=== PATIENT | male | born 1960 | race Caucasian/White ===

== ENCOUNTER → 2022-10-13 14:38 | Outpatient (CLI) | payer SELFPAY ==
[2022-10-13 13:31] LABS: Alanine Aminotransferase 26 U/L (12-78); Albumin Level 4.4 g/dl (3.5-5.0); Albumin/Globulin Ratio 1.5 (1.1-1.8); Alkaline Phosphatase 93 U/L (38-126); Anion Gap 15.2 mEq/L (5-15); Aspartate Amino Transferase 33 U/L (17-59); Bilirubin,Total 0.5 mg/dl (0.2-1.3); Blood Urea Nitrogen 15 mg/dl (9-20); Calcium 9.4 mg/dl (8.4-10.2); Carbon Dioxide 23 mmol/L (22.0-30.0); Chloride 107 mmol/L (98-107); Chol/HDL Ratio 4.5 (1-3.5); Cholesterol 167 mg/dl (140-200); Estimated Glomerular Filt Rate 137 ml/min (>60); GFR (African American) 166 ML/MIN (>60); Glucose 97 mg/dl (74-100); HDL Cholesterol 37 mg/dl (40-60); Potassium 4.2 mmoL/L (3.5-5.1); Sodium 141 mmol/L (136-145); Total Protein,Serum 7.4 g/dl (6.3-8.2); Triglycerides 313 mg/dl (30-150); VLDL Cholesterol 63 mg/dL (0-40)
[2022-10-13 13:42] LABS: Direct LDL Cholesterol 74.34 mg/dL (100-129)
[2022-10-13 13:49] LABS: Hemoglobin A1C 7.3 % (4.0-6.0)
[2022-10-13 14:02] LABS: Prostate Specific Ag Screen 0.6 ng/ml (0.0-4.0); Thyroid Stimulating Hormone 0.92 uIU/mL (0.465-4.68)
[2022-10-13 14:07] LABS: Amphetamine/Metha Screen,Urine Negative ng/ml (<1000); Barbiturates Screen,Urine Negative ng/ml (<200)
[2022-10-13 14:08] LABS: Basophils # 0.1 K/mm3 (0-0.2); Basophils % 0.6 % (0.1-2.0); Benzodiazepines Screen,Urine Negative ng/ml (<200); Cannabinoid Screen,Urine Negative ng/ml (<50); Eosinophils # 0.3 K/mm3 (0.0-0.4); Eosinophils % 3.6 % (0.1-12.0); Hematocrit 41.3 % (42.0-52.0); Hemoglobin 13.5 g/dL (14.1-18.0); Lymphocytes # 3.9 K/mm3 (0.7-4.5); Lymphocytes % 41.5 % (10-50); Mean Corpuscular HGB Conc 32.6 g/dL (31.8-35.4); Mean Corpuscular Hemoglobin 30.7 pg (27.0-31.2); Mean Corpuscular Volume 94.3 fl (80-94); Monocytes # 0.7 K/mm3 (0.1-1.0); Monocytes % 7.8 % (1.7-9.3); Neutrophils # 4.4 K/mm3 (1.8-7.8); Neutrophils % 46.6 % (37.0-80.0); Platelet Count 376 K/mm3 (142-424); Red Blood Count 4.38 M/mm3 (4.60-6.20); Red Cell Distribution Width 14.4 % (11.5-17.5); White Blood Count 9.5 K/mm3 (4.8-10.8)
[2022-10-13 14:09] LABS: Cocaine Screen,Urine Negative ng/ml (<300)
[2022-10-13 14:12] LABS: Methadone Screen,Urine Negative ng/ml (<300); Opiate Screen,Urine Negative ng/ml (<300)
[2022-10-13 14:13] LABS: Phencyclidine Screen,Urine Negative ng/ml (<25)
== END ==
LOC: LAB.DROPOF 14:40
PROVIDERS: PCP Emergency Medicine; Visit Provider Emergency Medicine
DX: E11.9 Type 2 diabetes mellitus without complications (principal); Z76.89 Persons encountering health services in other specified circumstances; Z79.899 Other long term (current) drug therapy; Z12.5 Encounter for screening for malignant neoplasm of prostate
CPT/HCPCS: 80053; 80061; 80305; 83036; 84443; 85025; G0103

== ENCOUNTER 2022-11-22 09:42 | Emergency (ER) | payer SELFPAY ==
[2022-11-22 09:43] VITALS: BP 134/73; PULSE 83; RESP 18; TEMP 36.6; O2SAT 99; BMI 23.6
--- NOTE | 2022-11-22 10:07 | EXP.UTC ---
Discharge Plan Disposition Patient Disposition: Home, Self-Care Condition: Good Prescriptions Prescriptions: New cephalexin 500 mg capsule 500 mg PO QID Qty: 40 0RF mupirocin 2 % ointment 1 applic topical TID 7 Days Qty: 15 0RF triamcinolone acetonide 0.1 % cream 1 applic topical BID PRN (Reason: itching) Qty: 30 0RF No Action gabapentin 300 mg capsule 300 mg PO QID Qty: 120 1RF Rx Instructions: OK to fill today per MD hydrocodone-acetaminophen 10-325 mg tablet 1 tab PO QID Qty: 120 0RF ibuprofen 800 mg tablet 800 mg PO Q8H Qty: 60 1RF quetiapine 100 mg tablet 100 mg PO HS Qty: 30 2RF metformin 500 mg tablet 500 mg PO BID Qty: 60 2RF duloxetine 60 mg capsule,delayed release(DR/EC) 60 mg PO DAILY Qty: 30 2RF lisinopril 20 mg tablet 20 mg PO DAILY Qty: 30 2RF Referrals Follow up/Referrals: Juwan Cartagena MD [Primary Care Provider] - See instructions Activity Restrictions/Add. Instructions Additional Instructions/Restrictions: Keep the wounds clean and dry. Watch the wounds for signs of infection, such as redness, swelling, drainage, fever. etc. Follow up with your regular doctor. Use the topical ointments as directed. The mupirocin is to be used regularly for the next 7 day. The triamcinolone is to be used as needed if you have an area that is itching. GO TO THE ER FOR ANY WORSENING SYMPTOMS OR CONCERNS. Clinical Impressions Clinical Impression: Impetigo, Diabetes Instructions Patient Instructions: Michael DI for Impetigo Discharge ED Provider: Oral Tello [facility] General Stated complaint: both feet bug bites Mode of Arrival: Ambulatory Source of Information: Patient Limitations: No Limitations Time Seen by Provider: 11/22/22 10:07 Description of Symptoms (Recalled from Triage Doc. by RN): Patient reports bumps on feet and legs for awhile now. HEENT Symptoms (Recalled from RN notes): No Resp Symptoms (Recalled from RN notes): No Skin Symptoms (Recalled from RN notes): Yes MS Symptoms (Recalled from RN notes): No Functional Status (Recalled from RN notes): wnl History of Present Illness Provider Complaint: He states that for the past 3 weeks he has had multiple scabbed areas on both his ankles and lower legs. He denies any injury. He states that his ankles itch and when he scratches them it causes sores. He is a diabetic. Related Data Previous Rx's Medication Instructions Recorded duloxetine 60 mg capsule,delayed 60 mg PO DAILY #30 caps 10/13/22 release ibuprofen 800 mg tablet 800 mg PO Q8H #60 tabs 10/13/22 lisinopril 20 mg tablet 20 mg PO DAILY #30 tabs 10/13/22 metformin 500 mg tablet 500 mg PO BID #60 tabs 10/13/22 quetiapine 100 mg tablet 100 mg PO HS #30 tabs 10/13/22 gabapentin 300 mg capsule 300 mg PO QID #120 caps 11/10/22 hydrocodone 10 mg-acetaminophen 1 tab PO QID #120 tabs 11/10/22 325 mg tablet cephalexin 500 mg capsule 500 mg PO QID #40 caps 11/22/22 mupirocin 2 % topical ointment 1 applic topical TID 7 days #15 11/22/22 grams triamcinolone acetonide 0.1 % 1 applic topical BID PRN itching 11/22/22 topical cream #30 grams Allergies Allergy/AdvReac Type Severity Reaction Status Date / Time No Known Allergies Allergy Verified 11/10/22 11:29 Worker's Comp Is this a Worker's Comp case?: No [facility] Disclaimer: The information contained in this section may have been updated after the patient was seen, as this information can be updated by other users. Medical History Diabetes Hypertension Tendon injury Surgical History H/O surgical fusion joint Social History Smoking Status: Current every day smoker tobacco type: cigarettes alcohol intake: never substance use type: denies use current occupational status: retired Travel
[2022-11-22 10:34] VITALS: BP 134/73; PULSE 83; RESP 18; TEMP 36.6; O2SAT 99
== END 2022-11-22 10:35 | disposition home or self-care (01) ==
PROVIDERS: Emergency Provider Nurse Practitioner Family; PCP Emergency Medicine
DX: L01.00 Impetigo, unspecified (principal); E11.9 Type 2 diabetes mellitus without complications; F17.210 Nicotine dependence, cigarettes, uncomplicated; I10 Essential (primary) hypertension; Z79.84 Long term (current) use of oral hypoglycemic drugs
CPT/HCPCS: 99204; 99212; G0463

== ENCOUNTER → 2023-03-04 15:48 | Outpatient (CLI) | payer SELFPAY ==
[2023-03-04 14:58] LABS: Microalbumin < 6.000 mg/L (0-16.7)
[2023-03-04 14:59] LABS: Amphetamine/Metha Screen,Urine Negative ng/ml (<1000); Barbiturates Screen,Urine Negative ng/ml (<200)
[2023-03-04 15:00] LABS: Benzodiazepines Screen,Urine Negative ng/ml (<200)
[2023-03-04 15:01] LABS: Cannabinoid Screen,Urine Negative ng/ml (<50); Cocaine Screen,Urine Negative ng/ml (<300)
[2023-03-04 15:02] LABS: Methadone Screen,Urine Negative ng/ml (<300)
[2023-03-04 15:03] LABS: Opiate Screen,Urine Positive ng/ml (<300); Phencyclidine Screen,Urine Negative ng/ml (<25)
[2023-03-04 15:16] LABS: Creatinine,Urine Random 16 mg/dL (Not Estab.)
== END ==
LOC: LAB.DROPOF 15:49
PROVIDERS: PCP Emergency Medicine; Visit Provider Emergency Medicine
DX: Z79.899 Other long term (current) drug therapy (principal); E11.9 Type 2 diabetes mellitus without complications; Z79.84 Long term (current) use of oral hypoglycemic drugs
CPT/HCPCS: 80305; 82043; 82570

== ENCOUNTER → 2023-04-29 23:09 | Outpatient (CLI) | payer SELFPAY ==
[2023-04-29 20:41] LABS: Amphetamine/Metha Screen,Urine Negative ng/ml (<1000)
[2023-04-29 20:42] LABS: Barbiturates Screen,Urine Negative ng/ml (<200)
[2023-04-29 20:43] LABS: Benzodiazepines Screen,Urine Negative ng/ml (<200)
[2023-04-29 20:44] LABS: Cannabinoid Screen,Urine Negative ng/ml (<50)
[2023-04-29 20:46] LABS: Cocaine Screen,Urine Negative ng/ml (<300); Opiate Screen,Urine Positive ng/ml (<300)
[2023-04-29 20:47] LABS: Methadone Screen,Urine Negative ng/ml (<300)
[2023-04-29 20:48] LABS: Phencyclidine Screen,Urine Negative ng/ml (<25)
== END ==
LOC: LAB.DROPOF 23:09
PROVIDERS: PCP Internal Medicine; Visit Provider Internal Medicine
DX: Z79.899 Other long term (current) drug therapy (principal)
CPT/HCPCS: 80305

== ENCOUNTER 2023-05-07 10:47 | Emergency (ER) | payer SELFPAY ==
[2023-05-07] VITALS (9 sets, daily range): BP systolic 128–152; BP diastolic 78–90; PULSE 74–94; RESP 20; TEMP 36.8; O2SAT 96–100; BMI 24.3
--- NOTE | 2023-05-07 11:36 | CT_ITS ---
FINAL REPORT TECHNIQUE: Axial images were obtained of the thoracic spine by computed tomography. Coronal and sagittal reconstruction process performed. This study was performed with techniques to keep radiation doses as low as reasonably achievable (ALARA). Individualized dose reduction techniques using automated exposure control or adjustment of mA and/or kV according to the patient's size were employed. CLINICAL HISTORY: TTP low thoracic spine, shooting pain/weakness BLE FINDINGS: Thoracic vertebrae show normal height. Disc spaces are well-preserved. There is no malalignment. The facets are properly aligned. There is mild dependent edema in the lung bases. IMPRESSION: No fracture. Reviewed, Interpreted and Dictated by Frank Dunbar MD Transcribed by Rosy Nettles Authenticated and . [facility]
--- NOTE | 2023-05-07 11:36 | CT_ITS ---
FINAL REPORT TECHNIQUE: Axial images were obtained of the lumbar spine by computed tomography. Coronal and sagittal reconstruction process performed. This study was performed with techniques to keep radiation doses as low as reasonably achievable (ALARA). Individualized dose reduction techniques using automated exposure control or adjustment of mA and/or kV according to the patient''s size were employed. CLINICAL HISTORY: TTP and shooting pain/ weakness BLE FINDINGS: Lumbar vertebrae show normal height. There is marked disc space narrowing at L3-4 and L4-5. There is moderate loss of height at L1-2. There is no malalignment. The facets are properly aligned. L1-2: Left paracentral disc extrusion extends inferiorly from the disc space. There is moderate compromise of the left lateral recess and posterior to the L2 vertebra. L2-3: No significant disc bulge or protrusion. L3-4: Moderate diffuse disc bulge and endplate hypertrophy are present. There is mild spinal and moderate bilateral neural foraminal narrowing. L4-5: Moderate diffuse disc bulge and endplate hypertrophy are present. There is [id number] right and moderate to high-grade left neural foraminal narrowing. L5-S1: Mild diffuse disc bulge is present with mild bilateral neural foraminal narrowing. IMPRESSION: Left paracentral disc extrusion at L1-2 extends inferiorly from the disc space in the results in moderate compromise of the left lateral recess. MRI could provide complementary imaging information. Diffuse disc bulges at L3-4 and L4-5 with significant neural foraminal compromise, most evident on the left at L4-5. Reviewed, Interpreted and Dictated by Frank Dunbar MD Transcribed by Rosy Nettles Authenticated and [facility]
--- NOTE | 2023-05-07 11:39 | ED_ITS ---
Discharge Plan Disposition Patient Disposition: Home, Self-Care Condition: Fair Prescriptions Prescriptions: No Action metformin 500 mg tablet 500 mg PO BID Qty: 60 2RF mupirocin 2 % ointment 1 applic topical TID gabapentin 300 mg capsule 600 mg PO TID 30 Days Qty: 180 1RF lisinopril 20 mg tablet 20 mg PO DAILY Qty: 30 2RF duloxetine 60 mg capsule,delayed release(DR/EC) 60 mg PO DAILY Qty: 90 0RF hydrocodone-acetaminophen 10-325 mg tablet 1 tab PO QID Qty: 120 0RF quetiapine 100 mg tablet 100 mg PO HS Qty: 30 2RF Referrals Follow up/Referrals: Antonio Madera DO [Staff Physician] - See instructions (Multiple disc bulges, needs referral for MRI for further evaluation) Steffen Mathis DO [Primary Care Provider] - See instructions Activity Restrictions/Add. Instructions Additional Instructions/Restrictions: You were evaluated in the ER today for concerns of back pain. You do have findings of degenerative changes in the spine including disc bulges at L1-L2, L3-L4, and L4-L5. These are consistent with your symptoms. You do not have findings of cauda equina. You do require further evaluation. I have placed a referral to orthopedics for outpatient follow-up. Call them for an appointment. Make an appointment with your primary care physician for reevaluation. Return to the ER with new, worsening, and otherwise concerning symptoms including but not limited to lack of feeling in your buttock/groin, urinary or stool incontinence, inability to use the restroom, or paralysis Clinical Impressions Clinical Impression: Lumbar back pain Discharge ED Provider: Jayjay Johnson Adult HPI General Chief complaint: Weakness Stated complaint: back pain, right leg numbness Time Seen by Provider: 05/07/23 11:25 Mode of Arrival: Ambulatory Source of Information: Patient Limitations: No Limitations Description of Symptoms (Recalled from ER Triage Doc. by RN): pt to ed c/o bilateral leg weakness, numbness/tingling. pt states he was dx with fused discs in his back. pt reports multiples falls a week related to his leg weakness. History of Present Illness HPI narrative: This 63-year-old male with a history of cervical spinal fusion and chronic back pain presents to the ER with concerns of fall secondary to leg weakness, shooting pains in the legs, numbness and tingling. Patient and family state he has just had pain medications thrown at him and has been told he could not get MRI because of his previous cervical spine fusion, however patient states he has had MRIs since his C-spine fusion. There were significant insurance issues delaying care and now patient is insured and they are here trying to expedite the process for workup. Patient states he is out of his hydrocodone 10 mg and gabapentin 300 mg that he normally takes. Patient denies any bowel or bladder incontinence or difficulty using the restroom. Related Data Home Medications Medication Instructions Recorded Confirmed mupirocin 2 % topical ointment 1 applic topical TID 01/07/23 04/29/23 Previous Rx's Medication Instructions Recorded metformin 500 mg tablet 500 mg PO BID #60 tabs 10/13/22 lisinopril 20 mg tablet 20 mg PO DAILY #30 tabs 02/23/23 gabapentin 300 mg capsule 600 mg PO TID 30 days #180 caps 04/29/23 duloxetine 60 mg capsule,delayed 60 mg PO DAILY #90 caps 05/05/23 release hydrocodone 10 mg-acetaminophen 1 tab PO QID #120 tabs 05/05/23 325 mg tablet quetiapine 100 mg tablet 100 mg PO HS #30 tabs 05/05/23 Allergies Allergy/AdvReac Type Severity Reaction Status Date / Time No Known Allergies Allergy Verified 04/29/23 09:28 [facility] Disclaimer: The information contained in this section may have been updated after the patient was seen, as this information can be updated by other users. Medical History Diabetes Hypertension Tendon injury Surgical History H/O surgical fusion joint Social History Smoking Status: Never smoker alcohol intake: never substance use type: denies use current occupational status: retired Travel in the last 8 weeks: None ROS Obtained: Yes All systems reviewed & no additional complaints except as documented Constitutional Constitutional: Denies chills, Denies fever(s), Denies headache(s) and Denies weakness Eyes Eyes: Denies change in vision ENT Ears, Nose, Mouth, and Throat: Denies dizziness, Denies headache(s), Denies nasal congestion and Denies sore throat Cardiovascular Cardiovascular: Denies chest pain, Denies dyspnea and Denies leg edema Respiratory Respiratory: Denies cough and Denies dyspnea Gastrointestinal Gastrointestingal: Denies constipation, diarrhea, nausea or vomiting Genitourinary Male Genitourinary: Denies difficulty urinating Musculoskeletal Musculoskeletal: Denies arthralgias, Reports back pain, Denies myalgias, Reports numbness and Reports tingling Comments: lower extremity weakness Integumentary/Breasts Skin/Breast: Denies change in pigmentation Neurologic Neurologic: Denies dizziness, Denies headache(s), Reports numbness, Reports tingling and Denies weakness Physical Exam General General appearance: alert and in no apparent distress Head Head exam: atraumatic and normocephalic Eye Eye exam: Present PERRL and EOMI ENT ENT exam: Present mucous membranes moist Neck Neck exam: Present normal inspection and full ROM Chest Chest inspection: Present symmetric chest wall rise Respiratory Respiratory exam: Absent respiratory distress or stridor Cardiovascular Cardiovascular exam: Present regular rate and normal rhythm Abdominal Exam Abdominal exam: Present soft; Absent distention or tenderness Extremities Exam Extremities exam: Present full ROM Back Exam Back exam: Present tenderness (Midline tenderness to palpation of the lower thoracic/upper lumbar spine without deformity or step-off), straight leg raise (R) and straight leg raise (L) Neurological Exam Neurological exam: Present alert, oriented X3 and motor sensory deficit (Decreased strength in the right lower extremity compared to the left, patient states he has decreased sensation right compared to the left.) Psychiatric Psychiatric exam: Present normal affect and normal mood Skin Skin exam: Present warm and dry Medical Decision Making Boy Inquiry Pt receiving controlled substance: No Vital Signs: 05/07/23 11:18 05/07/23 11:00 05/07/23 11:30 Temperature 98.2 F Temperature Source Oral Pulse Rate 94 H 91 H Pulse Rate [Left Radial] 94 H Respiratory Rate 20 Blood Pressure 149/84 H 137/90 Blood Pressure [Right Arm] 152/90 H Blood Pressure Mean 112 116 Blood Pressure Mean [Right Arm] 110 02 Sat by Pulse Oximetry 98 100 98 Oxygen Delivery Method Room Air Room Air Room Air 05/07/23 12:00 05/07/23 12:30 05/07/23 13:00 Temperature Temperature Source Pulse Rate 74 85 81 Pulse Rate [Left Radial] Respiratory Rate 20 20 20 Blood Pressure 150/87 H 128/82 136/79 Blood Pressure [Right Arm] Blood Pressure Mean 111 97 89 Blood Pressure Mean [Right Arm] 02 Sat by Pulse Oximetry 96 98 97 Oxygen Delivery Method 05/07/23 13:30 05/07/23 14:00 Temperature Temperature Source Pulse Rate 83 78 Pulse Rate [Left Radial] Respiratory Rate 20 Blood Pressure 139/89 134/80 Blood Pressure [Right Arm] Blood Pressure Mean 105 102 Blood Pressure Mean [Right Arm] 02 Sat by Pulse Oximetry 97 98 Oxygen Delivery Method Room Air Orders (Tests/Meds): ED MEDICATIONS Discontinued Medications Generic Name Dose Route Start Last Admin Trade Name Freq PRN Reason Stop Dose Admin Hydrocodone Bitart/Acetaminophen 1 tab 05/07/23 11:37 05/07/23 12:09 Hydrocodone 10mg/Apap 325mg Tab PO 05/07/23 11:38 1 tab ONCE ONE Administration Gabapentin 300 mg 05/07/23 11:36 05/07/23 12:11 Gabapentin 300mg Capsule PO 05/07/23 11:37 300 mg ONCE ONE Administration Lidocaine 1 each 05/07/23 11:36 05/07/23 12:09 Lidocaine 5% Transdermal Patch TP 05/07/23 11:37 1 each ONCE ONE Administration Methocarbamol 500 mg 05/07/23 11:37 05/07/23 12:11 Methocarbamol 500mg Tablet PO 05/07/23 11:38 500 mg ONCE ONE Administration ORDERS Category Date Time Status CT lumbar spine wo con Stat Cat Scan 05/07/23 11:[address] thoracic spine wo con Stat Cat Scan 05/07/23 11:36 Completed Medical Decision Narrative: In summary, this 63year old male presents to the emergency department today with back pain, bilateral lower extremity pain, weakness with ambulation. On initial evaluation patient is hemodynamically stable, afebrile, he does have decreased strength in his right lower extremity compared to his left, positive straight leg raise bilaterally, no saddle anesthesia, no bowel or bladder incontinence. No difficulty using the restroom. Differential diagnosis includes but is not limited to spinal fracture or malalignment, degenerative changes, radiculopathy, muscle spasm, I considered cauda equina though I have lower suspicion for this given patient does not have saddle anesthesia, bowel or bladder incontinence, or difficulties using the restroom. Based on these concerns, I ordered CT imaging of the thoracic and lumbar spine, patient's home pain medication plus methocarbamol and lidocaine patch, postvoid residual bladder scan. Patient received oral hydrocodone, Robaxin, gabapentin, lidocaine patch for treatment. No labs are necessary at this time. Postvoid residual bladder scan demonstrated [address] imaging personally interpreted demonstrate degenerative changes with multiple disc bulges. Radiology read is in agreement and specifically recommends neuroforaminal compromise which is consistent with the patient's symptoms of radiculopathy. Given the reassuring postvoid bladder scan and patient frequently ambulating in the ER as he is anxious to leave, I am comfortable with the patient discharging. He does not have other findings of cauda equina and is appropriate for discharge. His symptoms are moderately controlled at this time since receiving medications on my reassessment, I placed referral to Dr. Madera with orthopedics for reevaluation. Patient was given instructions on symptomatic management, follow up instructions, and strict return precautions for the emergency department including instructions about returning with any incontinence, loss of bowel or bladder function, or paralysis. Patient and family at bedside indicated understanding and was discharged in stable condition. Critical Care Critical Care Time Critical Care Time: No
--- NOTE | 2023-05-07 12:02 | PC.NURSE ---
pt ambulatory to restroom without complications
[2023-05-07] MEDS: LIDOCAINE 5% TRANSDERMAL PATCH 1 EACH TP (12:09)
[2023-05-07] MEDS: HYDROCODONE 10MG/APAP 325MG TAB 1 TAB PO (12:09)
[2023-05-07] MEDS: METHOCARBAMOL 500MG TABLET 500 MG PO (12:11)
[2023-05-07] MEDS: GABAPENTIN 300MG CAPSULE 300 MG PO (12:11)
--- NOTE | 2023-05-07 12:21 | PC.NURSE ---
PVR less than 3 mL
== END 2023-05-07 14:47 | disposition home or self-care (01) ==
PROVIDERS: Emergency Provider Emergency Medicine; PCP Internal Medicine
DX: M54.50 Low back pain, unspecified (principal); R53.1 Weakness; R20.0 Anesthesia of skin; R20.2 Paresthesia of skin; E11.9 Type 2 diabetes mellitus without complications; I10 Essential (primary) hypertension
CPT/HCPCS: 72128; 72131; 99285

== ENCOUNTER 2023-05-26 11:59 | Outpatient (CLI) | payer SELFPAY ==
[2023-05-26 14:47] LABS: Amphetamine/Metha Screen,Urine Negative ng/ml (<1000); Barbiturates Screen,Urine Negative ng/ml (<200)
[2023-05-26 14:48] LABS: Benzodiazepines Screen,Urine Negative ng/ml (<200)
[2023-05-26 14:49] LABS: Cannabinoid Screen,Urine Negative ng/ml (<50); Cocaine Screen,Urine Negative ng/ml (<300)
[2023-05-26 14:51] LABS: Methadone Screen,Urine Negative ng/ml (<300)
[2023-05-26 14:52] LABS: Opiate Screen,Urine Positive ng/ml (<300)
[2023-05-26 14:53] LABS: Phencyclidine Screen,Urine Negative ng/ml (<25)
== END 2023-05-26 23:59 ==
LOC: LAB.DROPOF 11:59
PROVIDERS: PCP Internal Medicine; Visit Provider Internal Medicine
DX: Z79.899 Other long term (current) drug therapy (principal)
CPT/HCPCS: 80307

== ENCOUNTER 2023-06-28 09:24 | Emergency (ER) | payer SELFPAY ==
[2023-06-28 09:26] VITALS: BP 146/63; PULSE 108; RESP 14; TEMP 36.6; O2SAT 95; BMI 26.6
[2023-06-28 09:30] VITALS: BP 146/83; PULSE 107; O2SAT 96
--- NOTE | 2023-06-28 09:41 | CT_ITS ---
PROCEDURE INFORMATION: Exam: CT Lumbar Spine Without Contrast Exam date and time: 06/28/2023 9:52 AM Age: 63 years old Clinical indication: Injury or trauma; Fall; Blunt trauma (contusions or hematomas); Additional info: Fall x 2 days, acute on chronic low back pain mid TECHNIQUE: Imaging protocol: Computed tomography of the lumbar spine without contrast. Radiation optimization: All CT scans at this facility use at least one of these dose optimization techniques: automated exposure control; mA and/or kV adjustment per patient size (includes targeted exams where dose is matched to clinical indication); or iterative reconstruction. COMPARISON: CT LUMBAR SPINE WO CON 05/07/2023 11:51 AM FINDINGS: Bones/joints: No acute fracture. Normal alignment. Severe disc space narrowing at L3-L4 and L4-L5 with endplate changes and vacuum disc phenomenon. No significant disc bulge or herniation. No severe spinal canal stenosis. No significant neural foraminal narrowing. Soft tissues: Unremarkable. IMPRESSION: No acute findings.
--- NOTE | 2023-06-28 09:44 | HMH.EDGENADL ---
Discharge Plan Disposition Patient Disposition: Home, Self-Care Prescriptions Prescriptions: No Action metformin 500 mg tablet 500 mg PO BID Qty: 60 2RF mupirocin 2 % ointment 1 applic topical TID gabapentin 300 mg capsule 600 mg PO TID 30 Days Qty: 180 0RF hydrocodone-acetaminophen 10-325 mg tablet 1 tab PO QID 30 Days Qty: 120 0RF duloxetine 60 mg capsule,delayed release(DR/EC) 60 mg PO DAILY Qty: 90 0RF quetiapine 100 mg tablet 100 mg PO HS Qty: 30 2RF lisinopril 20 mg tablet See Rx Instructions .ROUTE .COMPLEX Qty: 90 0RF Dose Instruction: Take 1 tablet by mouth once daily Rx Instructions: Take 1 tablet by mouth once daily Referrals Follow up/Referrals: Eb Draper MD [Staff Physician] - See instructions Steffen Mathis DO [Primary Care Provider] - See instructions Activity Restrictions/Add. Instructions Additional Instructions/Restrictions: At this time is felt you are safe to be discharged home. If new or worsening symptoms please do not hesitate to return the emergency department, particularly using the bathroom on yourself when you do not need to. You are in a very difficult situation, it is important that you are compliant with medications as they are prescribed to you. Please call and schedule an appointment with Dr. Mathis this week as soon as you are able to discuss your options. In my opinion physical therapy will be worthwhile given that you are unable to get an MRI anytime soon. Dr. Draper is our pain management physician at [facility] and may have alternative therapies to offer, I feel will be worthwhile for you to call and make an appointment as soon as you are able at a minimum for their opinion. Clinical Impressions Clinical Impression: Back pain Discharge ED Provider: Mitch Pyle General Adult HPI General Chief complaint: PAIN Stated complaint: [id number], back pain Time Seen by Provider: 06/28/23 09:30 Mode of Arrival: Ambulatory Source of Information: Patient Limitations: No Limitations Description of Symptoms (Recalled from ER Triage Doc. by RN): pt presents to ED with c/o lower back pain. pt reports pain ongoing for several years. pt is established with dr mathis for primary care. pts sister in law at bedside who states, he ate all of his pain pills in the first two weeks of the month, and now has none. pt reports this is true, but no change in pain from baseline History of Present Illness HPI narrative: Patient is a 63-year-old male with past medical history of chronic back pain who presents emergency department for evaluation of back pain. Pain is similar in location to his baseline, across his lumbar spine, however is more severe than normal. Patient takes gabapentin and [place] for his pain control at baseline. Over the last 2 weeks he has taken his entire monthly allotment of [place], last use this morning. He attributes this to not counting his intake of his controlled substances. He also has intermittent frequent falls, most recently falling forwards up the stairs. No reported head trauma or other acute complaints at this time, no incontinence. He is accompanied by his [id number] at bedside. Related Data Home Medications Medication Instructions Recorded Confirmed mupirocin 2 % topical ointment 1 applic topical TID 01/07/23 06/22/23 Previous Rx's Medication Instructions Recorded metformin 500 mg tablet 500 mg PO BID #60 tabs 10/13/22 duloxetine 60 mg capsule,delayed 60 mg PO DAILY #90 caps 05/05/23 release quetiapine 100 mg tablet 100 mg PO HS #30 tabs 05/05/23 lisinopril 20 mg tablet See Rx Instructions .Route 06/15/23 .COMPLEX #90 tabs gabapentin 300 mg capsule 600 mg PO TID 30 days #180 caps 06/22/23 hydrocodone 10 mg-acetaminophen 1 tab PO QID 30 days #120 tabs 06/22/23 325 mg tablet Allergies Allergy/AdvReac Type Severity Reaction Status Date / Time No Known Allergies Allergy Verified 06/22/23 09:44 [facility] Disclaimer: The information contained in this section may have been updated after the patient was seen, as this information can be updated by other users. Medical History Diabetes Hypertension Tendon injury Surgical History H/O surgical fusion joint Social History Smoking Status: Current every day smoker tobacco type: cigarettes alcohol intake: never substance use type: denies use current occupational status: retired Travel in the last 8 weeks: None ROS Obtained: Yes Systems reviewed as appropriate & no additional complaints except as documented Physical Exam General General appearance: alert and other (Appearing in pain in bed) Head Head exam: atraumatic and normocephalic Eye Eye exam: Present PERRL ENT ENT exam: Present mucous membranes moist Neck Neck exam: Present normal inspection Chest Chest inspection: Present normal inspection and symmetric chest wall rise Respiratory Respiratory exam: Absent respiratory distress Cardiovascular Cardiovascular exam: Present regular rate and normal rhythm Abdominal Exam Abdominal exam: Present soft; Absent tenderness Extremities Exam Extremities exam: Present normal inspection and other (5 out of 5 strength bilateral lower extremities) Back Exam Back exam: Present other (Lumbar midline tenderness) Neurological Exam Neurological exam: Present alert Psychiatric Psychiatric exam: Present normal affect Skin Skin exam: Present warm and dry Medical Decision Making Boy Inquiry Pt receiving controlled substance: No Vital Signs: 06/28/23 09:26 06/28/23 09:30 06/28/23 10:00 Temperature 97.8 F Temperature Source Oral Pulse Rate 107 H 99 H Pulse Rate [Left Radial] 108 H Respiratory Rate 14 Blood Pressure 146/83 H 144/96 H Blood Pressure [Right Arm] 146/63 H Blood Pressure Mean 107 Blood Pressure Mean [Right Arm] 90 02 Sat by Pulse Oximetry 95 96 94 L Oxygen Delivery Method Room Air Room Air Orders (Tests/Meds): ED MEDICATIONS Discontinued Medications Generic Name Dose Route Start Last Admin Trade Name Ruben PRN Reason Stop Dose Admin Acetaminophen 1,000 mg 06/28/23 09:41 06/28/23 09:47 Acetaminophen 1,000mg/100ml Vial IV 06/28/23 09:42 Not Given ONCE ONE Acetaminophen 1,000 mg 06/28/23 09:48 06/28/23 10:06 Acetaminophen 500mg Tab PO 06/28/23 09:49 1,000 mg ONCE ONE Administration Ketorolac Tromethamine 60 mg 06/28/23 09:49 06/28/23 10:05 Ketorolac 60mg/2ml Vial IM 06/28/23 09:50 60 mg ONCE ONE Administration Lidocaine 1 each 06/28/23 09:41 06/28/23 10:04 Lidocaine 5% Transdermal Patch TP 06/28/23 09:42 1 each ONCE ONE Administration Methocarbamol 1,000 mg 06/28/23 09:42 02/18/24 10:05 Methocarbamol 500mg Tablet PO 06/28/23 09:43 1,000 mg ONCE ONE Administration Prednisone 40 mg 06/28/23 09:41 06/28/23 10:05 Prednisone 20mg Tab PO 06/28/23 09:42 40 mg ONCE ONE Administration ORDERS Category Date Time Status CT lumbar spine wo con Stat Cat Scan 06/28/23 09:41 Completed Medical Decision Narrative: In summary patient is a 63-year-old male with past medical history described above who presents to the emergency department for evaluation of acute on chronic back pain. Patient is hemodynamically stable nontoxic-appearing upon arrival, appearing in pain, afebrile. Differential diagnosis includes vertebral compression fracture, chronic back pain, among others. Given history of falls with midline tenderness CT imaging is indicated. Extensive discussion was had at bedside with patient and family as to the position he is in, the importance of medication compliance with controlled substances, that there will be no discharge controlled substances today, the need for possible physical therapy evaluation prior to physical therapy given that patient is unable to afford an MRI in the foreseeable future. Patient verbalized understanding of this. Patient requested something to help him sleep which is not indicated at this time acutely or on an outpatient basis from the emergency room. Multimodal pain control will be attempted with Tylenol, ketorolac, lidocaine patch, methocarbamol. Although steroids are arguably of little utility will be attempted with single dose of prednisone. Patient may benefit from pain management referral on an outpatient basis and will be discharged with such. CT imaging informally interpreted by me, no significant 2 or 3 column fracture, formal read shows no acute findings. Upon repeat evaluation patient had persistent pain, was ambulatory at bedside. Patient is appropriate for discharge at this time we will follow-up with Dr. Mathis early next week for coordination of care. Critical Care Critical Care Time Critical Care Time: No
[2023-06-28 10:00] VITALS: BP 144/96; PULSE 99; O2SAT 94
[2023-06-28] MEDS: LIDOCAINE 5% TRANSDERMAL PATCH 1 EACH TP (10:04)
[2023-06-28] MEDS: KETOROLAC 60MG/2ML VIAL 60 MG IM (10:05)
[2023-06-28] MEDS: predniSONE 20MG TAB 40 MG PO (10:05)
[2023-06-28] MEDS: METHOCARBAMOL 500MG TABLET 1000 MG PO (10:05)
[2023-06-28] MEDS: ACETAMINOPHEN 500MG TAB 1000 MG PO (10:06)
[2023-06-28 10:51] VITALS: BP 144/76; PULSE 86; RESP 15; TEMP 36.7
== END 2023-06-28 10:52 | disposition home or self-care (01) ==
PROVIDERS: Emergency Provider Emergency Medicine; PCP Internal Medicine
DX: M54.50 Low back pain, unspecified (principal); E11.9 Type 2 diabetes mellitus without complications; I10 Essential (primary) hypertension; F17.210 Nicotine dependence, cigarettes, uncomplicated; Z79.84 Long term (current) use of oral hypoglycemic drugs
CPT/HCPCS: 72131; 96372; 96374; 99284

== ENCOUNTER 2023-08-18 12:34 | Outpatient (CLI) | payer SELFPAY ==
[2023-08-18 12:39] LABS: Basophils # 0.1 K/mm3 (0-0.2); Basophils % 0.9 % (0.1-2.0); Eosinophils # 0.4 K/mm3 (0.0-0.4); Eosinophils % 2.8 % (0.1-12.0); Hematocrit 42.3 % (42.0-52.0); Hemoglobin 13.6 g/dL (14.1-18.0); Lymphocytes # 4.3 K/mm3 (0.7-4.5); Lymphocytes % 34.6 % (10-50); Mean Corpuscular HGB Conc 32.2 g/dL (31.8-35.4); Mean Corpuscular Hemoglobin 30.6 pg (27.0-31.2); Mean Corpuscular Volume 95.2 fl (80-94); Mean Platelet Volume 8.9 fl (7.4-10.4); Monocytes # 0.9 K/mm3 (0.1-1.0); Neutrophils # 6.8 K/mm3 (1.8-7.8); Neutrophils % 54.7 % (37.0-80.0); Platelet Count 390 K/mm3 (142-424); Red Blood Count 4.44 M/mm3 (4.60-6.20); Red Cell Distribution Width 13.7 % (11.5-17.5); White Blood Count 12.4 K/mm3 (4.8-10.8)
[2023-08-18 12:44] LABS: Alanine Aminotransferase 28 U/L (12-78); Albumin Level 4.3 g/dl (3.5-5.0); Albumin/Globulin Ratio 1.6 (1.1-1.8); Alkaline Phosphatase 85 U/L (38-126); Anion Gap 14.5 mEq/L (5-15); Aspartate Amino Transferase 32 U/L (17-59); Bilirubin,Total 0.5 mg/dl (0.2-1.3); Blood Urea Nitrogen 15 mg/dl (9-20); Calcium 9.9 mg/dl (8.4-10.2); Carbon Dioxide 23 mmol/L (22.0-30.0); Chloride 106 mmol/L (98-107); Chol/HDL Ratio 5.9 (1-3.5); Cholesterol 207 mg/dl (140-200); Estimated Glomerular Filt Rate 114 ml/min (>60); GFR (African American) 138 ML/MIN (>60); Globulin 2.7 g/dL (1.3-3.2); Glucose 221 mg/dl (74-100); HDL Cholesterol 35 mg/dl (40-60); Potassium 5.5 mmoL/L (3.5-5.1); Sodium 138 mmol/L (136-145); Triglycerides 134 mg/dl (30-150); VLDL Cholesterol 27 mg/dL (0-40)
[2023-08-18 12:55] LABS: Direct LDL Cholesterol 123.39 mg/dL (100-129)
[2023-08-18 13:02] LABS: 25-OH Vitamin D, Total 46.1 ng/mL (30-100)
[2023-08-18 13:11] LABS: Hemoglobin A1C 7.8 % (4.0-6.0)
== END 2023-08-18 23:59 | disposition home or self-care (01) ==
LOC: LAB.DROPOF 12:35
PROVIDERS: PCP Internal Medicine; Visit Provider Internal Medicine
DX: R53.83 Other fatigue (principal); Z79.899 Other long term (current) drug therapy
CPT/HCPCS: 80053; 80061; 82306; 83036; 85025

== ENCOUNTER 2023-10-20 09:59 | Outpatient (CLI) | payer SELFPAY ==
[2023-10-20 18:30] LABS: Potassium 4.6 mmoL/L (3.5-5.1)
== END 2023-10-20 23:59 | disposition home or self-care (01) ==
LOC: LAB.DROPOF 10-21 10:00
PROVIDERS: PCP Internal Medicine; Visit Provider Internal Medicine
DX: I10 Essential (primary) hypertension (principal)
CPT/HCPCS: 84132

== ENCOUNTER 2024-02-19 14:23 | Emergency (ER) | payer SELFPAY ==
[2024-02-19] VITALS (9 sets, daily range): BP systolic 122–147; BP diastolic 69–89; PULSE 89–102; RESP 9–19; TEMP 36.7–36.8; O2SAT 93–100; BMI 26.6
--- NOTE | 2024-02-19 14:28 | PC.NURSE ---
Stroke alert called. Dr. Gilliland at BS.
--- NOTE | 2024-02-19 14:29 | PC.NURSE ---
Pt gone to CT via stretcher
--- NOTE | 2024-02-19 14:32 | CT_ITS ---
FINAL REPORT CLINICAL HISTORY: Altered mental status FINDINGS: Axial images of the head were obtained without contrast. Coronal reformatted images were also obtained.This study was performed with techniques to keep radiation doses as low as reasonably achievable (ALARA). Individualized dose reduction techniques using automated exposure control or adjustment of mA and/or kV according to the patient's size were employed. There is no evidence of intracranial hemorrhage or mass. The ventricular size is within normal limits. There is no evidence of shift of the midline structures. No abnormal extra axial fluid collection is identified. No skull abnormality is seen on the bone window images. IMPRESSION: No acute intracranial abnormality. Reviewed, Interpreted and Dictated by Harpreet Ortez III, MD Transcribed by Libia Lara Authenticated and [facility]
--- NOTE | 2024-02-19 14:32 | CT_ITS ---
FINAL REPORT TECHNIQUE: Thin section axial CT with IV contrast supplemented with multiplanar reconstruction under CT angiogram protocol. This study was performed with techniques to keep radiation doses as low as reasonably achievable (ALARA). Individualized dose reduction techniques using automated exposure control or adjustment of mA and/or kV according to the patient''s size were employed. NASCET criteria was utilized during interpretation. CLINICAL HISTORY: Weakness, altered mental status FINDINGS: Aortic arch: Arch shows no significant narrowing. Great vessel origins are widely patent. Fortunes of the carotid arteries are obscured. There is mild calcified plaque at the bulbs bilaterally. There is no evidence of stenosis. Vertebral: Left vertebral artery is dominant. No significant stenosis is present. IMPRESSION: No evidence of stenosis or occlusion. Reviewed, Interpreted and Dictated by Harpreet Ortez III, MD Transcribed by Libia Lara Authenticated and [facility][1]
--- NOTE | 2024-02-19 14:32 | CT_ITS ---
FINAL REPORT TECHNIQUE: Thin section axial CT with IV contrast supplemented with multiplanar reconstruction under CT angiogram protocol. 3-D reconstructions were performed. This study was performed with techniques to keep radiation doses as low as reasonably achievable (ALARA). Individualized dose reduction techniques using automated exposure control or adjustment of mA and/or kV according to the patient''s size were employed. CLINICAL HISTORY: Weakness, altered mental status FINDINGS: The distal vertebral, basilar and distal internal carotid arteries have an unremarkable appearance. No aneurysm is seen. Major intracranial vessels are patent without significant stenosis. IMPRESSION: No major vessel occlusion or aneurysm. Reviewed, Interpreted and Dictated by Harpreet Ortez III, MD Transcribed by Libia Lara Authenticated and [facility]
--- NOTE | 2024-02-19 14:33 | HMH.EDGENADL ---
Discharge Plan Disposition Patient Disposition: Home, Self-Care Prescriptions Prescriptions: No Action duloxetine 60 mg capsule,delayed release(DR/EC) 60 mg PO DAILY Qty: 90 4RF lisinopril 20 mg tablet See Rx Instructions .ROUTE .COMPLEX Qty: 90 4RF Dose Instruction: Take 1 tablet by mouth once daily Rx Instructions: Take 1 tablet by mouth once daily metformin 500 mg tablet 1,000 mg PO BID 90 Days Qty: 360 4RF quetiapine 100 mg tablet 100 mg PO HS Qty: 90 4RF gabapentin 300 mg capsule See Rx Instructions .ROUTE .COMPLEX Qty: 180 1RF Dose Instruction: TAKE 2 CAPSULES BY MOUTH THREE TIMES A DAY MAY CAUSE DROWSINESS Rx Instructions: TAKE 2 CAPSULES BY MOUTH THREE TIMES A DAY MAY CAUSE DROWSINESS hydrocodone-acetaminophen 10-325 mg tablet 1 tab PO Q4H PRN (Reason: pain) 30 Days Qty: 180 0RF Referrals Follow up/Referrals: Steffen Mathis DO [Primary Care Provider] - See instructions Activity Restrictions/Add. Instructions Additional Instructions/Restrictions: Call your family doctor to establish care for this visit to the emergency department and schedule follow-up within 48 hours to ensure improvement. If you have any worsening of your condition or any other concerning signs or symptoms, return to the emergency department or your primary care doctor for further evaluation. Talk to your family doctor about carotid ultrasound for further definitive evaluation and management. Clinical Impressions Clinical Impression: Transient neurological symptoms Print Language Print Language: Arabic Discharge ED Provider: Michael Gonzáles General Adult HPI <Rosalind Gilliland MD - Last Filed: 02/19/24 16:05> General Chief complaint: Neuro Symptoms/Deficit Stated complaint: Poss Stroke Time Seen by Provider: 02/19/24 14:30 History of Present Illness HPI narrative: Piotr Carty is a 63 y/o male presenting with stroke-like symptoms. Patient states 1 hour prior to arrival he lost his family member to take his blood pressure because he started feeling increased dizziness and having increased weakness on his right side. Family is present and states that his blood pressure was 200s over 100s when she measured it. Patient has a history of mini stroke but does not take blood thinners. Patient takes lisinopril. Patient also has a history of spine injury which he has seen neurosurgery at for. Last known well 1330. Patient denies headache, chest pain, shortness of breath, nausea/vomiting, bowel or bladder dysfunction. Related Data Previous Rx's ?Medication ?Instructions ?Recorded duloxetine 60 mg capsule,delayed 60 mg PO DAILY #90 caps 10/20/23 release lisinopril 20 mg tablet See Rx Instructions .Route 10/20/23 .COMPLEX #90 tabs metformin 500 mg tablet 1,000 mg (2 x 500 mg) PO BID 90 10/20/23 days #360 tabs quetiapine 100 mg tablet 100 mg PO HS #90 tabs 10/20/23 gabapentin 300 mg capsule See Rx Instructions .Route 01/14/24 .COMPLEX #180 caps hydrocodone 10 mg-acetaminophen 1 tab PO Q4H PRN pain 30 days #180 01/19/24 325 mg tablet tabs Allergies Allergy/AdvReac Type Severity Reaction Status Date / Time No Known Allergies Allergy Verified 01/14/24 11:07 [facility] <Rosalind Gilliland MD - Last Filed: 02/19/24 16:05> [facility] Disclaimer: The information contained in this section may have been updated after the patient was seen, as this information can be updated by other users. Medical History Tendon injury Hypertension Diabetes Surgical History H/O surgical fusion joint Social History Smoking Status: Unknown if ever smoked alcohol intake: never substance use type: denies use current occupational status: retired Travel in the last 8 weeks: None Other Medical History Have you received the Pneumonia Vaccine: No <Rosalind Gilliland MD - Last Filed: 02/19/24 16:05> ROS Obtained: Yes All systems reviewed & no additional complaints except as documented Physical Exam <Rosalind Gilliland MD - Last Filed: 02/19/24 16:05> General General appearance: alert Head Head exam: atraumatic and normocephalic Eye Eye exam: Present PERRL and EOMI; Absent scleral icterus or nystagmus ENT ENT exam: Present normal exam Neck Neck exam: Present full ROM; Absent tenderness Chest Chest inspection: Present normal inspection Respiratory Respiratory exam: Present normal lung sounds bilaterally; Absent respiratory distress Cardiovascular Cardiovascular exam: Present regular rate and normal rhythm Abdominal Exam Abdominal exam: Present soft; Absent tenderness Neurological Exam Neurological exam: Present alert, oriented X3 and motor sensory deficit Expanded Neurological Exam Cranial nerves: Normal: spinal accessory function (XI) and tongue deviation (XII), Abnormal Left: facial palsy (VII) and Abnormal Right: facial sensation (V) Cerebellar function: normal gait Motor strength - LUE: 5/5 Motor strength - RUE: 4/5 Motor strength - LLE: 5/5 Motor strength - RLE: 4/5 Coma scale eye opening: Spontaneous Coma scale motor response: Obeys commands Coma scale verbal response: Oriented Coma scale total: 15 Skin Skin exam: Present warm and dry <Michael Gonzáles MD - Last Filed: 02/19/24 17:55> Expanded Neurological Exam Coma scale total: 15 Medical Decision Making <Rosalind Gilliland MD - Last Filed: 02/19/24 16:05> Medical Records Screening: Per USPSTF and CDC recommendations, given the prevalence of disease in our region, it is our hospital?s policy to screen for HIV and viral Hepatitis for all patients aged 18 and over and those with ongoing risk factors. Boy Inquiry Pt receiving controlled substance: No Vital Signs: 02/19/24 14:24 02/19/24 14:41 02/19/24 14:59 Temperature 98.1 F Temperature Source Oral Pulse Rate 93 H 97 H Pulse Rate [Left Radial] 102 H Respiratory Rate 18 Blood Pressure 137/78 Blood Pressure [Right Arm] 122/81 Blood Pressure Mean 99 Blood Pressure Mean [Right Arm] 94 Blood Pressure Source Blood Pressure Source [Right Arm] Automatic Cuff Blood Pressure Position Blood Pressure Position [Right Arm] Sitting 02 Sat by Pulse Oximetry 100 100 97 Oxygen Delivery Method Room Air 02/19/24 15:00 02/19/24 15:30 02/19/24 15:41 Temperature Temperature Source Pulse Rate 90 89 93 H Pulse Rate [Left Radial] Respiratory Rate 19 Blood Pressure 126/79 147/89 H 137/83 Blood Pressure [Right Arm] Blood Pressure Mean 106 109 Blood Pressure Mean [Right Arm] Blood Pressure Source Blood Pressure Source [Right Arm] Blood Pressure Position Blood Pressure Position [Right Arm] 02 Sat by Pulse Oximetry 93 L 95 96 Oxygen Delivery Method 02/19/24 16:00 02/19/24 16:30 02/19/24 17:30 Temperature 98.3 F Temperature Source Oral Pulse Rate 89 89 90 Pulse Rate [Left Radial] Respiratory Rate 9 L 15 18 Blood Pressure 131/74 124/69 128/70 Blood Pressure [Right Arm] Blood Pressure Mean Blood Pressure Mean [Right Arm] Blood Pressure Source Automatic Cuff Blood Pressure Source [Right Arm] Blood Pressure Position Sitting Blood Pressure Position [Right Arm] 02 Sat by Pulse Oximetry 96 96 Oxygen Delivery Method Room Air Room Air Lab Data Lab Results 02/19/24 14:28: WBC 8.2, RBC 4.24 L, Hgb 13.2 L, Hct 39.2 L, MCV 92.6, MCH 31.2, MCHC 33.7, RDW 13.6, Plt Count 338, MPV 7.1 L, Neut % (Auto) 36.6 L, Lymph % (Auto) 49.4, Gilmer % (Auto) 6.8, Eos % (Auto) 6.2, Baso % (Auto) 1.2, Neut # (Auto) 3.0, Lymph # (Auto) 4.0, Gilmer # (Auto) 0.6, Eos # (Auto) 0.5 H, Baso # (Auto) 0.1, PT 10.5, INR 0.93, APTT 25.8, Sodium 135 L, Potassium 4.2, Chloride 104, Carbon Dioxide 22, Anion Gap 13.2, BUN 15, Creatinine 0.90, Estimated GFR 86, Est GFR ( Amer) 103, Glucose 174 H, Calcium 9.1, Total Bilirubin 0.4, AST 34, ALT 28, Alkaline Phosphatase 63, Troponin I < 0.01, Total Protein 7.2, Albumin 4.3, Globulin 2.9, Albumin/Globulin Ratio 1.5, Triglycerides 228 H, Cholesterol 175, LDL Cholesterol Direct 74.02 L, VLDL Cholesterol 46 H, HDL Cholesterol 40, Cholesterol/HDL Ratio 4.4 H, Plasma/Serum Alcohol < 10, HIV 1&2 Antibody Rapid Nonreactive 02/19/24 15:41: Urine Color Yellow, Urine Appearance Clear, Urine pH 6.0, Ur Specific Cumming <= 1.005, Urine Protein Negative, Urine Glucose (UA) Negative, Urine Ketones Negative, Urine Blood Negative, Urine Nitrate Negative, Urine Bilirubin Negative, Urine Urobilinogen 0.2, Ur Leukocyte Esterase Negative, Urine RBC Occasional, Urine WBC Occasional, Ur Squamous Epith Cells Occasional, Urine Opiates Screen Positive H, Urine Methadone Screen Negative, Ur Barbituates Screen Negative, Ur Phencyclidine Scrn Negative, Ur Amphetamines Screen Negative, U Benzodiazepines Scrn Negative, Urine Cocaine Screen Negative, U Marijuana (THC) Screen Negative 02/19/24 14:28 02/19/24 14:28 Orders (Tests/Meds): ED MEDICATIONS Discontinued Medications Generic Name Dose Route Start Last Admin Trade Name Freq PRN Reason Stop Dose Admin Iopamidol 80 ml 02/19/24 14:43 02/19/24 14:44 Iopamidol-370 (76%);100ml Bottle IV 02/19/24 14:44 80 ml ONCE ONE Administration Sodium Chloride 10 ml 02/19/24 14:32 Sodium Chloride 0.9% 10ml Flush Syringe IV 03/20/24 14:31 NEEDED PRN Maintain IV Site Sodium Chloride 10 ml 02/19/24 14:43 02/19/24 14:44 Sodium Chloride 0.9% 10ml Syr (Rad Only) IV 02/19/24 14:44 10 ml ONCE ONE Administration Sodium Chloride 50 ml 02/19/24 14:43 02/19/24 14:44 0.9 % Sodium Chloride 50 Ml Vial IV 02/19/24 14:44 50 ml ONCE ONE Administration ORDERS Category Date Time Status CT angio head Stat Cat Scan 02/19/24 14:[address] angio neck Stat Cat Scan 02/19/24 14:[address] head/brain wo con Stat Cat Scan 02/19/24 14:32 Completed Activated Partial Thrombo Time Stat Lab 02/19/24 14:28 Completed Complete Blood Count Auto Diff Stat Lab 02/19/24 14:28 Completed Comprehensive Metabolic Panel Stat Lab 02/19/24 14:28 Completed Drug Screen,Urine Stat Lab 02/19/24 15:41 Completed Ethyl Alcohol Stat Lab 02/19/24 14:28 Completed HIV (1&2) Antibody Rapid Stat Lab 02/19/24 14:28 Completed Hep C Ab with Reflex to RNA Stat Lab 02/19/24 14:46 Received Lipid Panel Stat Lab 02/19/24 14:28 Completed Prothrombin Time INR Stat Lab 02/19/24 14:28 Completed Troponin I Stat Lab 02/19/24 14:28 Completed Urinalysis and Microscopic Stat Lab 02/19/24 15:41 Completed ECG Data Tracing #1: I reviewed this ECG and interpreted as documented below: Sinus rhythm with rate of 91, no QTc prolongation, no significant ST elevation/depression or evidence of acute ischemia. ECG initial impression date: 02/19/24 ECG initial impression time: 14:40 ECG normal with no acute: arrhythmias, ischemia, conduction abnormalities, chamber hypertrophy Medical Decision Narrative: In summary, Piotr Carty is a 63 y/o male presenting with stroke-like symptoms. Differential diagnosis includes was not limited to, acute ischemic stroke, thromboembolism, hypertensive emergency, electrolyte abnormalities, toxins, ACS, among others. Patient hemodynamically stable, in acute distress on initial evaluation. I was called to quickly evaluate the patient due to concern for stroke-like symptoms and story. Patient's last known well was at 1330. Patient states leaning to the left with increased weakness and inability to stand from his chair. Patient was noted to have increased blood pressure at that time. Patient also has a history of mini stroke and is not on blood thinners or aspirin. Patient's presentation is also complicated by severe lower back pain and lack of medical insurance which has prevented further management by neurosurgery, per patient's family member at bedside. Patient activated as a stroke alert. Initial vitals did not demonstrate hypertension. Initial NIH 3. Patient's laboratory evaluation negative for leukocytosis, anemia, thrombocytopenia. Coagulation studies within normal limits. Hyperglycemic at 174, otherwise unremarkable CMP. Elevated triglycerides at 228. CT head without contrast personally reviewed by me and negative for hemorrhage or acute infarct. CTA head negative for aneurysm, occlusion, dissection. Ultimately patient care was handed off to Dr. Michael Gonzáles pending final testing results and ultimate disposition. <Michael Gonzáles MD - Last Filed: 02/19/24 17:55> Vital Signs: 02/19/24 14:24 02/19/24 14:41 02/19/24 14:59 Temperature 98.1 F Temperature Source Oral Pulse Rate 93 H 97 H Pulse Rate [Left Radial] 102 H Respiratory Rate 18 Blood Pressure 137/78 Blood Pressure [Right Arm] 122/81 Blood Pressure Mean 99 Blood Pressure Mean [Right Arm] 94 Blood Pressure Source Blood Pressure Source [Right Arm] Automatic Cuff Blood Pressure Position Blood Pressure Position [Right Arm] Sitting 02 Sat by Pulse Oximetry 100 100 97 Oxygen Delivery Method Room Air 02/19/24 15:00 02/19/24 15:30 02/19/24 15:41 Temperature Temperature Source Pulse Rate 90 89 93 H Pulse Rate [Left Radial] Respiratory Rate 19 Blood Pressure 126/79 147/89 H 137/83 Blood Pressure [Right Arm] Blood Pressure Mean 106 109 Blood Pressure Mean [Right Arm] Blood Pressure Source Blood Pressure Source [Right Arm] Blood Pressure Position Blood Pressure Position [Right Arm] 02 Sat by Pulse Oximetry 93 L 95 96 Oxygen Delivery Method 02/19/24 16:00 02/19/24 16:30 02/19/24 17:30 Temperature 98.3 F Temperature Source Oral Pulse Rate 89 89 90 Pulse Rate [Left Radial] Respiratory Rate 9 L 15 18 Blood Pressure 131/74 124/69 128/70 Blood Pressure [Right Arm] Blood Pressure Mean Blood Pressure Mean [Right Arm] Blood Pressure Source Automatic Cuff Blood Pressure Source [Right Arm] Blood Pressure Position Sitting Blood Pressure Position [Right Arm] 02 Sat by Pulse Oximetry 96 96 Oxygen Delivery Method Room Air Room Air Lab Data Lab Results 02/19/24 14:28: WBC 8.2, RBC 4.24 L, Hgb 13.2 L, Hct 39.2 L, MCV 92.6, MCH 31.2, MCHC 33.7, RDW 13.6, Plt Count 338, MPV 7.1 L, Neut % (Auto) 36.6 L, Lymph % (Auto) 49.4, Gilmer % (Auto) 6.8, Eos % (Auto) 6.2, Baso % (Auto) 1.2, Neut # (Auto) 3.0, Lymph # (Auto) 4.0, Gilmer # (Auto) 0.6, Eos # (Auto) 0.5 H, Baso # (Auto) 0.1, PT 10.5, INR 0.93, APTT 25.8, Sodium 135 L, Potassium 4.2, Chloride 104, Carbon Dioxide 22, Anion Gap 13.2, BUN 15, Creatinine 0.90, Estimated GFR 86, Est GFR ( Amer) 103, Glucose 174 H, Calcium 9.1, Total Bilirubin 0.4, AST 34, ALT 28, Alkaline Phosphatase 63, Troponin I < 0.01, Total Protein 7.2, Albumin 4.3, Globulin 2.9, Albumin/Globulin Ratio 1.5, Triglycerides 228 H, Cholesterol 175, LDL Cholesterol Direct 74.02 L, VLDL Cholesterol 46 H, HDL Cholesterol 40, Cholesterol/HDL Ratio 4.4 H, Plasma/Serum Alcohol < 10, HIV 1&2 Antibody Rapid Nonreactive 02/19/24 15:41: Urine Color Yellow, Urine Appearance Clear, Urine pH 6.0, Ur Specific Cum[place] <= 1.005, Urine Protein Negative, Urine Glucose (UA) Negative, Urine Ketones Negative, Urine Blood Negative, Urine Nitrate Negative, Urine Bilirubin Negative, Urine Urobilinogen 0.2, Ur Leukocyte Esterase Negative, Urine RBC Occasional, Urine WBC Occasional, Ur Squamous Epith Cells Occasional, Urine Opiates Screen Positive H, Urine Methadone Screen Negative, Ur Barbituates Screen Negative, Ur Phencyclidine Scrn Negative, Ur Amphetamines Screen Negative, U Benzodiazepines Scrn Negative, Urine Cocaine Screen Negative, U Marijuana (THC) Screen Negative Orders (Tests/Meds): ED MEDICATIONS Discontinued Medications Generic Name Dose Route Start Last Admin Trade Name Freq PRN Reason Stop Dose Admin Iopamidol 80 ml 02/19/24 14:43 02/19/24 14:44 Iopamidol-370 (76%);100ml Bottle IV 02/19/24 14:44 80 ml ONCE ONE Administration Sodium Chloride 10 ml 02/19/24 14:32 Sodium Chloride 0.9% 10ml Flush Syringe IV 03/20/24 14:31 NEEDED PRN Maintain IV Site Sodium Chloride 10 ml 02/19/24 14:43 02/19/24 14:44 Sodium Chloride 0.9% 10ml Syr (Rad Only) IV 02/19/24 14:44 10 ml ONCE ONE Administration Sodium Chloride 50 ml 02/19/24 14:43 02/19/24 14:44 0.9 % Sodium Chloride 50 Ml Vial IV 02/19/24 14:44 50 ml ONCE ONE Administration ORDERS Category Date Time Status CT angio head Stat Cat Scan 02/19/24 14:[address] angio neck Stat Cat Scan 02/19/24 14:[address] head/brain wo con Stat Cat Scan 02/19/24 14:32 Completed Activated Partial Thrombo Time Stat Lab 02/19/24 14:28 Completed Complete Blood Count Auto Diff Stat Lab 02/19/24 14:28 Completed Comprehensive Metabolic Panel Stat Lab 02/19/24 14:28 Completed Drug Screen,Urine Stat Lab 02/19/24 15:41 Completed Ethyl Alcohol Stat Lab 02/19/24 14:28 Completed HIV (1&2) Antibody Rapid Stat Lab 02/19/24 14:28 Completed Hep C Ab with Reflex to RNA Stat Lab 02/19/24 14:46 Received Lipid Panel Stat Lab 02/19/24 14:28 Completed Prothrombin Time INR Stat Lab 02/19/24 14:28 Completed Troponin I Stat Lab 02/19/24 14:28 Completed Urinalysis and Microscopic Stat Lab 02/19/24 15:41 Completed Medical Decision Narrative: In summary, Piotr Carty is a 63 y/o male presenting with stroke-like symptoms. Differential diagnosis includes was not limited to, acute ischemic stroke, thromboembolism, hypertensive emergency, electrolyte abnormalities, toxins, ACS, among others. Patient hemodynamically stable, in acute distress on initial evaluation. I was called to quickly evaluate the patient due to concern for stroke-like symptoms and story. Patient's last known well was at 1330. Patient states leaning to the left with increased weakness and inability to stand from his chair. Patient was noted to have increased blood pressure at that time. Patient also has a history of mini stroke and is not on blood thinners or aspirin. Patient's presentation is also complicated by severe lower back pain and lack of medical insurance which has prevented further management by neurosurgery, per patient's family member at bedside. Patient activated as a stroke alert. Initial vitals did not demonstrate hypertension. Initial NIH 3. Patient's laboratory evaluation negative for leukocytosis, anemia, thrombocytopenia. Coagulation studies within normal limits. Hyperglycemic at 174, otherwise unremarkable CMP. Elevated triglycerides at 228. CT head without contrast personally reviewed by me and negative for hemorrhage or acute infarct. CTA head negative for aneurysm, occlusion, dissection. Ultimately patient care was handed off to Dr. Michael Gonzáles pending final testing results and ultimate disposition. Nivia: I assumed primary responsibility for this patient after signout from previous physician. Independent interpretation necessitating of workup demonstrates no abnormalities hospitalization or transfer. Nonactionable overall. Patient's hematologic labs largely within normal limits. Troponin negative. CT angiogram of the head and neck without acute abnormality, minimal stenosis of his carotid arteries. No intracranial hemorrhage or CVA. On my evaluation, patient ambulatory without issue, speaking without issue, visitor in the room states that he appears to be at his normal self and feels that his symptoms today were largely subjective more so than objective is well. I did not see patient on arrival, but patient very clinically well-appearing. I feel he is appropriate for outpatient management. Because patient at baseline without signs or symptoms of clinical decompensation, deemed appropriate for discharge. Results were relayed to patient who voiced understanding and were agreeable to outpatient management and follow up. I discussed my clinical impression with patient and answered all questions. At this time, the evidence for any other entities in the differential is insufficient to warrant any further testing or ED observation. This was explained as well. Advisory was given that persistent or worsening symptoms require further evaluation. I confirmed the understanding of this discussion. Critical Care <Rosalind Gilliland MD - Last Filed: 02/19/24 16:05> Critical Care Time Critical Care Time: No
[2024-02-19 14:37] LABS: Basophils # 0.1 K/mm3 (0-0.2); Basophils % 1.2 % (0.1-2.0); Eosinophils # 0.5 K/mm3 (0.0-0.4); Eosinophils % 6.2 % (0.1-12.0); Hematocrit 39.2 % (42.0-52.0); Hemoglobin 13.2 g/dL (14.1-18.0); Lymphocytes % 49.4 % (10-50); Mean Corpuscular HGB Conc 33.7 g/dL (31.8-35.4); Mean Corpuscular Hemoglobin 31.2 pg (27.0-31.2); Mean Corpuscular Volume 92.6 fl (80-94); Mean Platelet Volume 7.1 fl (7.4-10.4); Monocytes # 0.6 K/mm3 (0.1-1.0); Monocytes % 6.8 % (1.7-9.3); Neutrophils % 36.6 % (37.0-80.0); Platelet Count 338 K/mm3 (142-424); Red Blood Count 4.24 M/mm3 (4.60-6.20); Red Cell Distribution Width 13.6 % (11.5-17.5); White Blood Count 8.2 K/mm3 (4.8-10.8)
[2024-02-19 14:42] LABS: Albumin Level 4.3 g/dl (3.5-5.0); Chloride 104 mmol/L (98-107); Potassium 4.2 mmoL/L (3.5-5.1); Sodium 135 mmol/L (136-145)
--- NOTE | 2024-02-19 14:42 | HMH.ITSTN ---
GFR completion/results overrode by physician on a risk vs.benefit situation for this patient
[2024-02-19 14:44] LABS: Alanine Aminotransferase 28 U/L (12-78); Aspartate Amino Transferase 34 U/L (17-59); Blood Urea Nitrogen 15 mg/dl (9-20); Estimated Glomerular Filt Rate 86 ml/min (>60); GFR (African American) 103 ML/MIN (>60)
[2024-02-19] MEDS: 0.9 % SODIUM CHLORIDE 50 ML VIAL IV (14:44)
[2024-02-19] MEDS: SODIUM CHLORIDE 0.9% 10ML SYR (RAD ONLY) 10 ML IV (14:44)
[2024-02-19] MEDS: IOPAMIDOL-370 (76%);100ML BOTTLE 80 ML IV (14:44)
--- NOTE | 2024-02-19 14:44 | PC.NURSE ---
Pt returned to room from CT
[2024-02-19 14:45] LABS: Activated Partial Thrombo Time 25.8 seconds (22.8-30.6); Albumin/Globulin Ratio 1.5 (1.1-1.8); Alkaline Phosphatase 63 U/L (38-126); Anion Gap 13.2 mEq/L (5-15); Bilirubin,Total 0.4 mg/dl (0.2-1.3); Calcium 9.1 mg/dl (8.4-10.2); Carbon Dioxide 22 mmol/L (22.0-30.0); Chol/HDL Ratio 4.4 (1-3.5); Cholesterol 175 mg/dl (140-200); Globulin 2.9 g/dL (1.3-3.2); Glucose 174 mg/dl (74-100); HDL Cholesterol 40 mg/dl (40-60); INR 0.93 (0.9-1.1); Prothrombin Time 10.5 seconds (10.1-12.5); Total Protein,Serum 7.2 g/dl (6.3-8.2); Triglycerides 228 mg/dl (30-150); VLDL Cholesterol 46 mg/dL (0-40)
--- NOTE | 2024-02-19 14:47 | ECG_ITS ---
APPROVED REPORT Exam: Resting ECG HR:91 bpm ECG Measurements Heart Rate 91 AXES MO 184 P 61 QRSd 96 QRS 45 QT 356 T 79 QTc 405 Conclusion SINUS RHYTHM NORMAL ECG Electronically signed by : LAYA BERMAN, 02/21/2024 13:17:42
[2024-02-19 14:52] LABS: Ethyl Alcohol < 10 mg/dl (0-10)
[2024-02-19 14:56] LABS: Direct LDL Cholesterol 74.02 mg/dL (100-129)
[2024-02-19 15:01] LABS: Troponin I < 0.01 ng/ml (0.00-0.034)
[2024-02-19 15:44] LABS: Microscopic, Urine URINE MICROSCOPIC (MICROSCOPIC)
[2024-02-19 15:53] LABS: Appearance,Urine CLEAR (Clear); Bilirubin,Urine Negative (Negative); Blood, Urine Negative (Negative); Color,Urine YELLOW (Yellow); Glucose,Urine (UA) Negative (Negative); Ketones,Urine Negative (Negative); Leukocyte Esterase,Urine Negative (Negative); Nitrate,Urine Negative (Negative); Protein,Urine Negative (Negative); Specific Gravity, Urine <= 1.005 (1.005-1.030); Urobilinogen,Urine 0.2 EU/dl (0.2)
[2024-02-19 16:01] LABS: RBC,Urine Occasional #/hpf (0-3)
[2024-02-19 16:02] LABS: Amphetamine/Metha Screen,Urine Negative ng/ml (<1000); Squamous Epithelial Cell,Urine Occasional #/hpf (0-5); WBC,Urine Occasional #/hpf (0-3)
[2024-02-19 16:03] LABS: Barbiturates Screen,Urine Negative ng/ml (<200)
[2024-02-19 16:04] LABS: Benzodiazepines Screen,Urine Negative ng/ml (<200); Cannabinoid Screen,Urine Negative ng/ml (<50)
[2024-02-19 16:05] LABS: Cocaine Screen,Urine Negative ng/ml (<300)
[2024-02-19 16:06] LABS: Methadone Screen,Urine Negative ng/ml (<300); Opiate Screen,Urine Positive ng/ml (<300)
[2024-02-19 16:07] LABS: Phencyclidine Screen,Urine Negative ng/ml (<25)
[2024-02-19 16:22] LABS: HIV (1&2) Antibody Rapid NONREACTIVE (NONREACTIVE)
--- NOTE | 2024-02-19 16:30 | PC.NURSE ---
family at BS. pt request to sit in chair. call light within reach.
[2024-02-23 14:14] LABS: HCV Ab Reactive (Non Reactive)
== END 2024-02-19 17:30 | disposition home or self-care (01) ==
PROVIDERS: Student in an Organized Health Care Education/Training Program; Emergency Provider Emergency Medicine; PCP Internal Medicine
DX: R29.818 Other symptoms and signs involving the nervous system (principal); R53.1 Weakness; R42 Dizziness and giddiness; I10 Essential (primary) hypertension
CPT/HCPCS: 70450; 70496; 70498; 80053; 80061; 80307; 80320; 81001; 84484; 85025; 85610; 85730; 86803; 87389; 93005; 99285; Q9967

== ENCOUNTER 2024-03-22 14:24 | Outpatient (CLI) | payer SELFPAY ==
[2024-03-24 05:15] LABS: Hep A Ab, Total Negative (Negative); Hep B Core Ab, Total Negative (Negative); Hep B Surface Ab, Qual Non Reactive (.); Hepatitis B Surface Antigen Negative (Negative)
== END 2024-03-22 23:59 | disposition home or self-care (01) ==
LOC: LAB.DROPOF 03-23 11:16
PROVIDERS: PCP Nurse Practitioner Family; Visit Provider Nurse Practitioner Family
DX: B18.2 Chronic viral hepatitis C (principal)
CPT/HCPCS: 86704; 86706; 86708; 87340

== ENCOUNTER 2024-04-12 08:40 | Outpatient (CLI) | payer SELFPAY ==
[2024-04-12 18:30] LABS: Basophils # 0.1 K/mm3 (0-0.2); Basophils % 1.2 % (0.1-2.0); Eosinophils # 0.5 K/mm3 (0.0-0.4); Hematocrit 41.6 % (42.0-52.0); Hemoglobin 13.8 g/dL (14.1-18.0); Lymphocytes # 4.1 K/mm3 (0.7-4.5); Lymphocytes % 41.6 % (10-50); Mean Corpuscular HGB Conc 33.2 g/dL (31.8-35.4); Mean Corpuscular Hemoglobin 31.4 pg (27.0-31.2); Mean Corpuscular Volume 94.7 fl (80-94); Mean Platelet Volume 9.1 fl (7.4-10.4); Monocytes # 0.9 K/mm3 (0.1-1.0); Monocytes % 8.6 % (1.7-9.3); Neutrophils # 4.3 K/mm3 (1.8-7.8); Neutrophils % 43.5 % (37.0-80.0); Platelet Count 470 K/mm3 (142-424); Red Cell Distribution Width 13.2 % (11.5-17.5); White Blood Count 9.8 K/mm3 (4.8-10.8)
[2024-04-12 18:58] LABS: Microalbumin/Creatinine Ratio 38.8
[2024-04-12 19:03] LABS: Alanine Aminotransferase 21 U/L (12-78); Albumin Level 4.4 g/dl (3.5-5.0); Albumin/Globulin Ratio 1.8 (1.1-1.8); Alkaline Phosphatase 91 U/L (38-126); Anion Gap 16.1 mEq/L (5-15); Aspartate Amino Transferase 26 U/L (17-59); Bilirubin,Total 0.3 mg/dl (0.2-1.3); Blood Urea Nitrogen 13 mg/dl (9-20); Calcium 9.7 mg/dl (8.4-10.2); Carbon Dioxide 24 mmol/L (22.0-30.0); Chloride 106 mmol/L (98-107); Estimated Glomerular Filt Rate 86 ml/min (>60); GFR (African American) 103 ML/MIN (>60); Globulin 2.4 g/dL (1.3-3.2); Glucose 155 mg/dl (74-100); Potassium 5.1 mmoL/L (3.5-5.1); Sodium 141 mmol/L (136-145); Total Protein,Serum 6.8 g/dl (6.3-8.2)
[2024-04-12 19:11] LABS: Creatinine,Urine Random 174 mg/dL (Not Estab.)
[2024-04-12 19:31] LABS: Prostate Specific Ag Screen 0.4 ng/ml (0.0-4.0)
[2024-04-12 19:59] LABS: Hemoglobin A1C 7.4 % (4.0-6.0)
[2024-04-12 20:07] LABS: Folate > 20.00 ng/mL
[2024-04-12 21:08] LABS: Ferritin 104 ng/ml (17.9-464)
[2024-04-12 21:32] LABS: Vitamin B12 438 pg/mL (239-931)
[2024-04-14 18:24] LABS: Peripheral Smear Review Scanned Result
== END 2024-04-12 23:59 | disposition home or self-care (01) ==
LOC: LAB.DROPOF 04-13 08:41
PROVIDERS: PCP Internal Medicine; Visit Provider Internal Medicine
DX: B18.2 Chronic viral hepatitis C (principal); D32.9 Benign neoplasm of meninges, unspecified; E11.69 Type 2 diabetes mellitus with other specified complication; E66.9 Obesity, unspecified; I10 Essential (primary) hypertension; Z12.5 Encounter for screening for malignant neoplasm of prostate; R53.83 Other fatigue; D64.9 Anemia, unspecified
CPT/HCPCS: 80053; 82043; 82570; 82607; 82728; 82746; 83036; 85025; G0103

== ENCOUNTER 2024-07-12 10:29 | Outpatient (CLI) | payer OTHER, SELFPAY ==
[2024-07-12 20:13] LABS: Basophils # 0.1 K/mm3 (0-0.2); Eosinophils # 0.3 K/mm3 (0.0-0.4); Eosinophils % 3.6 % (0.1-12.0); Hematocrit 37.5 % (42.0-52.0); Hemoglobin 11.7 g/dL (14.1-18.0); Lymphocytes # 4.9 K/mm3 (0.7-4.5); Lymphocytes % 55.7 % (10-50); Mean Corpuscular HGB Conc 31.2 g/dL (31.8-35.4); Mean Corpuscular Volume 96.2 fl (80-94); Mean Platelet Volume 9.8 fl (7.4-10.4); Monocytes # 1.1 K/mm3 (0.1-1.0); Monocytes % 12.1 % (1.7-9.3); Neutrophils # 2.4 K/mm3 (1.8-7.8); Neutrophils % 27.5 % (37.0-80.0); Platelet Count 540 K/mm3 (142-424); Red Cell Distribution Width 13.6 % (11.5-17.5); White Blood Count 8.8 K/mm3 (4.8-10.8)
[2024-07-12 20:16] LABS: MANUAL DIFFERENTIAL MANUAL DIFFERENTIAL (MANUAL DIFF)
[2024-07-12 20:37] LABS: Creatinine,Urine Random 182 mg/dL (Not Estab.); Microalbumin/Creatinine Ratio 73.9
[2024-07-12 21:14] LABS: Albumin Level 4.3 g/dl (3.5-5.0); Chloride 106 mmol/L (98-107); Potassium 5.2 mmoL/L (3.5-5.1); Sodium 140 mmol/L (136-145)
[2024-07-12 21:16] LABS: Blood Urea Nitrogen 15 mg/dl (9-20); Estimated Glomerular Filt Rate 75 ml/min (>60); GFR (African American) 91 ML/MIN (>60)
[2024-07-12 21:17] LABS: Alanine Aminotransferase 20 U/L (12-78); Albumin/Globulin Ratio 1.6 (1.1-1.8); Alkaline Phosphatase 80 U/L (38-126); Anion Gap 14.2 mEq/L (5-15); Aspartate Amino Transferase 24 U/L (17-59); Bilirubin,Total 0.2 mg/dl (0.2-1.3); Calcium 9.7 mg/dl (8.4-10.2); Carbon Dioxide 25 mmol/L (22.0-30.0); Globulin 2.7 g/dL (1.3-3.2); Glucose 154 mg/dl (74-100)
[2024-07-12 22:36] LABS: Eosinophils % 2 % (0-3); Lymphocytes % 59 % (10-50); Monocytes % 14 % (2-9); Neutrophils % 25 % (42-76); Platelet Estimate Slight Increase; RBC Morphology Normal; Total Cells Counted 100
[2024-07-12 23:56] LABS: Hemoglobin A1C 7.8 % (4.0-6.0)
== END 2024-07-12 23:59 | disposition home or self-care (01) ==
LOC: LAB.DROPOF 07-13 10:29
PROVIDERS: PCP Internal Medicine; Visit Provider Internal Medicine
DX: E11.42 Type 2 diabetes mellitus with diabetic polyneuropathy (principal); I10 Essential (primary) hypertension; R51.9 Headache, unspecified; G89.29 Other chronic pain
CPT/HCPCS: 80053; 82043; 82570; 83036; 85007; 85025; 85027

== ENCOUNTER 2024-07-21 07:46 | Outpatient (RCR) | payer OTHER, SELFPAY | END 2024-07-21 23:59 | disposition home or self-care (01) | LOC: PT 07:46 | PROVIDERS: Visit Provider Nurse Practitioner Family | DX: M54.41 Lumbago with sciatica, right side (principal); M54.42 Lumbago with sciatica, left side; G89.29 Other chronic pain | CPT/HCPCS: 97163 ==

== ENCOUNTER 2024-07-25 16:05 | Emergency (ER) | payer OTHER, SELFPAY ==
--- NOTE | 2024-07-25 16:14 | ECG_ITS ---
APPROVED REPORT Exam: Resting ECG HR:83 bpm ECG Measurements Heart Rate 83 AXES WV 179 P 67 QRSd 92 QRS 55 QT 353 T 80 QTc 393 Conclusion SINUS RHYTHM NORMAL ECG UNCONFIRMED REPORT Electronically signed by : Oral Hernandez, 07/25/2024 23:39:31
[2024-07-25 16:15] VITALS: BP 145/88; PULSE 84; O2SAT 98
[2024-07-25 16:19] VITALS: BP 145/88; PULSE 84; RESP 18; TEMP 36.7; O2SAT 99; BMI 27.3
[2024-07-25 16:30] VITALS: BP 125/83; PULSE 81; RESP 12; O2SAT 97
--- NOTE | 2024-07-25 16:58 | XR_ITS ---
PROCEDURE INFORMATION: Exam: XR Left Humerus Exam date and time: 07/25/2024 5:05 PM Age: 64 years old Clinical indication: Pain; Upper arm; Left; Additional info: Wrist drop TECHNIQUE: Imaging protocol: Radiologic exam of the left humerus. Views: 2 or more views. COMPARISON: CT ANGIO NECK 03/20/2024 14:39 FINDINGS: Bones/joints: No acute fracture or dislocation. Soft tissues: Normal. IMPRESSION: No acute fracture or dislocation.
--- NOTE | 2024-07-25 16:58 | XR_ITS ---
PROCEDURE INFORMATION: Exam: XR Left Forearm Exam date and time: 07/25/2024 5:09 PM Age: 64 years old Clinical indication: Injury or trauma; Fall; Blunt trauma (contusions or hematomas); Arm, lower; Left; Additional info: Fall, wrist drop TECHNIQUE: Imaging protocol: Radiologic exam of the left forearm. Views: 2 views. COMPARISON: No relevant prior studies available. FINDINGS: Bones/joints: No acute fracture or dislocation. Soft tissues: Calcifications adjacent to the medial epicondyle may represent chronic soft tissue injury. IMPRESSION: No acute fracture or dislocation.
--- NOTE | 2024-07-25 16:59 | HMH.EDGENADL ---
Discharge Plan Disposition Patient Disposition: Home, Self-Care Prescriptions Prescriptions: No Action metformin 1,000 mg tablet 1,000 mg PO BID 90 Days Qty: 180 3RF gabapentin 300 mg capsule See Rx Instructions .ROUTE .COMPLEX Qty: 180 0RF Dose Instruction: TAKE 2 CAPSULES BY MOUTH THREE TIMES A DAY MAY CAUSE DROWSINESS Rx Instructions: TAKE 2 CAPSULES BY MOUTH THREE TIMES A DAY MAY CAUSE DROWSINESS hydrocodone-acetaminophen 10-325 mg tablet 1 tab PO Q4H 30 Days Qty: 180 0RF duloxetine 60 mg capsule,delayed release(DR/EC) 60 mg PO DAILY Qty: 90 4RF quetiapine 100 mg tablet 100 mg PO HS Qty: 90 4RF lisinopril 20 mg tablet See Rx Instructions .ROUTE .COMPLEX Qty: 90 0RF Dose Instruction: Take 1 tablet by mouth once daily Rx Instructions: Take 1 tablet by mouth once daily Referrals Follow up/Referrals: Steffen Mathis DO [Primary Care Provider] - See instructions Activity Restrictions/Add. Instructions Additional Instructions/Restrictions: You may follow-up with [facility] hand surgery or [facility] which is affiliated with [facility]. Please wear your Velcro wrist splint at all times particular when you are sleeping. You have good prognosis but return of function typically is in 3 to 6-month please follow-up with hand surgery to ensure resolution of your symptoms or if you need any further surgical intervention. Clinical Impressions Clinical Impression: Left wrist drop, Left radial nerve palsy Print Language Print Language: [place] Discharge ED Provider: Nata Hernandez General Adult HPI General Chief complaint: Extremity Injury, Upper Stated complaint: Loss use of left arm and hand Time Seen by Provider: 07/25/24 16:31 Mode of Arrival: Ambulatory Source of Information: Patient Description of Symptoms (Recalled from ER Triage Doc. by RN): PT REPORTS LEFT ARM WEAKNESS AND NOT WORKING SINCE FALL ON THURSDAY NIGHT. DENIES ANY OTHER PAIN. HAS CHRONIC RIGHT ARM AND LEG WEAKNESS FOR 5 YEARS. REPORTS NEED FOR POSSIBLE BACK SURGERY History of Present Illness HPI narrative: Patient is a 64-year-old male presenting today with wrist drop. States that he fell on Thursday and progressively after that he began having some weakness in his arm woke up on Thursday morning and could not extend at the wrist. Has complete strength in his upper arm only complains of wrist drop. Does state that he has a chronic back issues but he denies any significant midline back pain etc. Related Data Previous Rx's ?Medication ?Instructions ?Recorded duloxetine 60 mg capsule,delayed 60 mg PO DAILY #90 caps 10/20/23 release quetiapine 100 mg tablet 100 mg PO HS #90 tabs 10/20/23 metformin 1,000 mg tablet 1,000 mg PO BID 90 days #180 tabs 04/12/24 lisinopril 20 mg tablet See Rx Instructions .Route 05/30/24 .COMPLEX #90 tabs gabapentin 300 mg capsule See Rx Instructions .Route 07/12/24 .COMPLEX #180 caps hydrocodone 10 mg-acetaminophen 1 tab PO Q4H 30 days #180 tabs 07/12/24 325 mg tablet Allergies Allergy/AdvReac Type Severity Reaction Status Date / Time No Known Allergies Allergy Verified 07/12/24 10:08 [facility] Disclaimer: The information contained in this section may have been updated after the patient was seen, as this information can be updated by other users. Medical History Tendon injury Hypertension Diabetes Surgical History H/O surgical fusion joint Social History (Updated 07/12/24 @ 10:09 by Ellen Cheatham MA) Smoking Status: Current every day smoker tobacco type: e-cigarettes alcohol intake: never substance use type: denies use current occupational status: retired Travel in the last 8 weeks: None Have you lived/traveled outside US in past 30 days?: No Contact w/someone who lives/traveled outside US past 30 days?: No Exposure to someone with infectious disease in past 14 days?: No Do you have a fever (greater than 100.4 F or 38 C)?: No Have you tested positive for COVID-19: No Exposed to someone with COVID-19 in past 14 days?: No Do you have a sore throat?: No Do you have a cough?: No Do you have any weakness?: No Do you have any diarrhea?: No Are you experiencing any unusual bleeding?: No Do you have any muscle aches/pain?: No Do you have any abdominal pain?: No Are you experiencing loss of taste or smell?: No Other Medical History Have you received the Pneumonia Vaccine: No ROS Obtained: Yes All systems reviewed & no additional complaints except as documented Physical Exam General General appearance: alert and in no apparent distress Respiratory Respiratory exam: Present normal lung sounds bilaterally Cardiovascular Cardiovascular exam: Present regular rate Extremities Exam Extremities exam: Present other (Normal proximal range of motion specifically normal flexion and extension at the elbow triceps are 5 out of 5 strength patient has wrist drop at the wrist otherwise his median ulnar nerve somatosensory and motor function are normal vascular exam is normal) Neurological Exam Neurological exam: Present alert and oriented X3 Medical Decision Making Medical Records Screening: Per USPSTF and CDC recommendations, given the prevalence of disease in our region, it is our hospital?s policy to screen for HIV and viral Hepatitis for all patients aged 18 and over and those with ongoing risk factors. Boy Inquiry Pt receiving controlled substance: No Vital Signs: 07/25/24 16:15 07/25/24 16:19 07/25/24 16:30 Temperature 98.0 F Temperature Source Oral Pulse Rate 84 81 Pulse Rate [Apical] 84 Respiratory Rate 18 12 Blood Pressure 145/88 H 125/83 Blood Pressure [Right Arm] 145/88 H Blood Pressure Mean [Right Arm] 107 Blood Pressure Source [Right Arm] Automatic Cuff Blood Pressure Position [Right Arm] Sitting 02 Sat by Pulse Oximetry 98 99 97 Oxygen Delivery Method Room Air Room Air Room Air 07/25/24 17:38 Temperature 98.2 F Temperature Source Pulse Rate 80 Pulse Rate [Apical] Respiratory Rate 20 Blood Pressure 140/80 Blood Pressure [Right Arm] Blood Pressure Mean [Right Arm] Blood Pressure Source [Right Arm] Blood Pressure Position [Right Arm] 02 Sat by Pulse Oximetry Oxygen Delivery Method Room Air Orders (Tests/Meds): ORDERS Category Date Time Status Forearm XR left 2 views [XR forearm LT 2V] Stat Exams 07/25/24 16:58 Taken Humerus XR left [XR humerus LT] Stat Exams 07/25/24 16:58 Taken Medical Decision Narrative: 64-year-old with clinical wrist drop consistent with a radial nerve palsy most likely at the radial groove. He has complete extension strength at the tricep suggesting that it is nothing more proximal. The remainder of his neurologic exam is normal. Vascular exam is also normal. Patient denies progressive prolonged compression on the arm that evening. However his exam from a superficial standpoint appears relatively normal other than some small abrasions in the left upper extremity will get plain films to rule out any type of compressive abnormality from a fracture. Compartments feel soft. Family member who is in the room states that patient takes multiple medications to sleep but the patient states he normally sleeps upright in a chair and is sure that he was not compressing his left upper arm for prolonged period of time but that is still what I suspect is most likely the explanation. Will place the patient in a Velcro splint and have him follow-up with hand surgery. He does have good prognosis is most likely he will have return of function in 3 to 6 months. X-rays performed of the humerus and the forearm which I personally interpreted which shows no evidence of any fractures or dislocation. Patient was placed in a Velcro wrist splint. He has been given contact information with [facility] and [facility]. Advised to follow-up with hand surgery at his convenience and to return with any worsening symptoms. Critical Care Critical Care Time Critical Care Time: No
[2024-07-25 17:38] VITALS: BP 140/80; PULSE 80; RESP 20; TEMP 36.8; O2SAT 98
== END 2024-07-25 17:40 | disposition home or self-care (01) ==
PROVIDERS: Emergency Provider Student in an Organized Health Care Education/Training Program; PCP Internal Medicine
DX: M25.332 Other instability, left wrist (principal); G56.32 Lesion of radial nerve, left upper limb; F17.210 Nicotine dependence, cigarettes, uncomplicated; R29.898 Other symptoms and signs involving the musculoskeletal system; W19.XXXA Unspecified fall, initial encounter; Y93.9 Activity, unspecified; Y92.9 Unspecified place or not applicable
CPT/HCPCS: 73060; 73090; 93005; 99283

== ENCOUNTER 2024-12-29 11:14 | Outpatient (CLI) | payer OTHER, SELFPAY ==
[2024-12-29 15:35] LABS: Albumin Level 4.4 g/dl (3.5-5.0); Chloride 108 mmol/L (98-107); Potassium 4.9 mmoL/L (3.5-5.1); Sodium 140 mmol/L (136-145)
[2024-12-29 15:38] LABS: Alanine Aminotransferase 16 U/L (12-78); Albumin/Globulin Ratio 1.8 (1.1-1.8); Alkaline Phosphatase 65 U/L (38-126); Anion Gap 15.9 mEq/L (5-15); Aspartate Amino Transferase 30 U/L (17-59); Bilirubin,Total 0.4 mg/dl (0.2-1.3); Blood Urea Nitrogen 13 mg/dl (9-20); Carbon Dioxide 21 mmol/L (22.0-30.0); Cholesterol 164 mg/dl (140-200); Creatinine,Serum 0.90 mg/dl (0.66-1.25); Estimated Glomerular Filt Rate 85 ml/min (>60); GFR (African American) 103 ML/MIN (>60); Globulin 2.5 g/dL (1.3-3.2); Total Protein,Serum 6.9 g/dl (6.3-8.2); Triglycerides 232 mg/dl (30-150)
[2024-12-29 15:39] LABS: Calcium 9.6 mg/dl (8.4-10.2); Glucose 232 mg/dl (74-100); HDL Cholesterol 37 mg/dl (40-60)
[2024-12-29 18:00] LABS: Hemoglobin A1C 6.7 % (4.0-6.0)
--- OUTSIDE RECORDS SUMMARY | 2025-01-02 11:58 | XMS_ITS | Encounter Summary ---
Author Organization Healthcare Address [address] [place] [address] Care Team Providers Care Practice Consultant Name Role Phone DelSteffen Primary Care Provider [phone] Reason for Visit * Reason Onset Date Comments HCN - Patient Message 11/09/2024 Return mahogany l Encounter Details Date Type Department Care Team (Late st Contact Info) Description 11/09/2024 Telephone [place] [facility] [address] [place] [address] Gabriele Quiñones MD [address] [place] [address] HCN - Patient Message (Return call) Social History Tobacco Use Types Packs/Day Years Used Date Smoking Tobacco: Every Day Cigarettes 1.5 49.6 Started: 1975 Passive Smoke Exposure: Never Smokeless Tobacco: Never Alcohol Use Standard Drinks/Week Comments Never 0 (1 standard drink = 0.6 oz pur e alcohol) PHQ-2 Answer Date Recorded Patient Health Questionnaire-2 Score 0 10/12/2023 Sex and Gender Information Value Date Recorded Sex Assigned at Not on file Legal Sex Male 10:33 AM EDT Gender Identity Not on file Sexual Orientation Not on file documented as of this encounter Miscellaneous Notes * Telephone Encounter - Vasyl Wilson - 11/09/2024 5:19 PM EDT 11/09/2024 - 5:19PM Spoke to patient home care nurse directly - Patient just recently acquired an insurance policy that became active. - Patient's last visit November [address] Quiñones / But did not have insurance coverage at thattime* 1) Advised patient's caregiver to seek updated referral from PCP first, as new insurance will need a referral on record. 2) Patient will need to also stop using all nicotine products sona, and be able to provide a Quit date upon receiving the referral from the PCP office to help determine when to schedule the updated follow up. 2A) PCP - Hopefully will order updated MRI scan as part of updated referral & also due to last images being captured from July 2023 (and out of date for surgery approval purposes) 3) Once patient has completed updated PCP visit, Updated MRI, and completed Nicotine quit date we can schedule follow up with Dr. Quiñones to fast track plan of care/ and to figure out if insurance company will require alternative therapies prior for surgery approval. No further action required at this time. * Telephone Encounter - Channing Walker - 11/09/2024 3:53 PM EDT Patient Phone Message Reason for Call: Caregiver requesting a call back SONA to discuss getting prior-auth on physical therapy and possibly for his surgery. Best contact number and optimal time of day to reach caller: Please call [phone] Note: Please do not reply to this message. Follow-up communication and further actions as a result of this message need to be communicated with the patient directly, if the patient is not active onMyChart. If the patient is active on MyChart, they will receive notification of the communication/outcome via [employer]. documented in this encounter Plan of Treatment Not on file documented as of this encounter Visit Diagnoses Not on filedocumented in this encounter Additional Health Concerns Assessment Noted Time A fall risk assessment has been complete d for the patient 10/12/2023 12:12 PM EDT A Body Mass Index follow-up plan has been documented for the patient 11/21/2023 7:36 PM EDT documented as of this encounter Care Teams Practice Consultant Relationship Specialty Start Date End Date Steffen Mathis DO [address] [place] [address] PCP - General 10/12/23 documented as of this encounter
--- OUTSIDE RECORDS SUMMARY | 2025-01-02 11:58 | XMS_ITS | Clinical Summary ---
Author Organization Healthcare Address [address] [place] [address] Care Team Providers Care Pupil Personnel Services Director Name Role Phone Steffen Mathis Primary Care Provider [phone] Allergies No known active allergies Medications DULoxetine (Cymbalta) [address] capsule Take 1 capsule (60 mg) by mouth 1 (one) time each day. 10/13/2022 Active gabapentin (Neurontin) 300 MG capsule 1 capsule (300 mg). 11/10/2022 Active HYDROcodone-angie taminophen (Stuart) 10-325 MG tablet 1 tablet (10 mg of hydrocodone) . 12/09/2022 Active lisinopril 20 MG tablet Take 1 tablet (20 mg) by mouth 1 (one) time each day. 09/08/2023 Active metFORMIN (Glucophage) 500 MG tablet Take 2 tablets (1,000 mg) by mouth 2 (two) times a day. 09/19/2023 Active QUEtiapine (SEROquel) 100 MG tablet Take 1 tablet (100 mg) by mouth every night. 10/13/2022 Active Encounters Date Type Department Care Team Description 11/09/2024 Telephone [place] [facility] [address] [place] [address] Gabriele Quiñones MD HCN - Patient Message (Return call) from Last 3 Months Social History Tobacco Use Types Packs/Day Years Used Date Smoking Tobacco: Every Day Cigarettes 1.5 49.6 Started: 1975 Passive Smoke Exposure: Never Smokeless Tobacco: Never Tobacco Cessation:Ready to Q uit: No; Counseling Given: No Alcohol Use Standard Drinks/Week Comments Never 0 (1 standard drink = 0.6 oz pur e alcohol) PHQ-2 Answer Date Recorded Patient Health Questionnaire-2 Score 0 10/12/2023 Sex and Gender Information Value Date Recorded Sex Assigned at Not on file Legal Sex Male 10:33 AM EDT Gender Identity Not on file Sexual Orientation Not on file Last Filed Vital Signs Vital Sign Reading Time Taken Comments Blood Pressure 116/64 11/11/2023 4:21 PM EDT Pulse 97 10/12/2023 12:12 PM EDT Temperature 36.6 C (97.8 F) 10/12/2023 12:12 PM EDT Respiratory Rate 16 10/12/2023 12:12 PM EDT Oxygen Saturation - - Inhaled Oxygen Concentration - - Weight 83 kg (183 lb) 11/11/2023 4:21 PM EDT Height 175.3 cm (5' 9 ) 11/11/2023 4:21 PM EDT Body Mass Index 27.02 11/11/2023 4:21 PM EDT Plan of Treatment Health Maintenance Due Date Last Done Comments [facility]-HIV Screening 1961 [facility]-Hepatitis C Screening 1961 [facility]-Infant/Child/Adol SDOH Screenings 1961 [facility]- SDOH Screenings 1979 [facility]-Adult SDOH Screenings 1979 [facility]-DTaP,Tdap,and Td Vaccine s (1 - Tdap) 1980 CT Colonography 2006 Colonoscopy 2006 FIT-DNA 2006 FIT 2006 FOBT 2006 Sigmoidoscopy 2006 [facility]-Colorectal Cancer Screening 2006 [facility]-Pneumococcal Vaccine: 50 + Years (1 of 1 - PCV) 2011 [facility]-Zoster Vaccines (1 of 2) 2011 [id number] Vaccine (1 - 2023- season) 2024 [facility]-Depression Screening 10/11/2024 10/12/2023 [facility]-Influenza Vaccine (#1) 2025 [facility]-RSV Vaccine: 60+ Years o r (1 - 1-dose 75+ series) 2036 [facility]-Obesity Intervention Completed 024, 10/12/2023 HPV Vaccines Aged Out No longer eligi ble based on patient's age to complete this topic [facility]-HIB Vaccines Aged Out No longer e ligible based on patient's age to complete this topic [facility]-Hepatitis A Vaccines Aged Out No longer eligible based on patient's age to complete this topic [facility]-IPV Vaccines Aged Out No longer e ligible based on patient's age to complete this topic [facility]-Rotavirus Vaccines Aged Out No lo nger eligible based on patient's age to complete this topic Care Teams Pupil Personnel Services Director Relationship Specialty Start Date End Date Steffen Mathis DO [address] [place] [address] PCP - General 10/12/23
--- OUTSIDE RECORDS SUMMARY | 2025-01-02 11:58 | XMS_ITS | Encounter Summary ---
Author Organization Healthcare Address [address] [place] [address] Care Team Providers Care Territory Representative Name Role Phone Steffen Mathis DO Primary Care Provider [phone] Encounter Details Date Type Department Care Team (Late st Contact Info) Description 07/29/2023 Orders Only External Location [address] [place] [address] Provider, External Social History Tobacco Use Types Packs/Day Years Used Date Smoking Tobacco: Never Assessed Sex and Gender Information Value Date Recorded Sex Assigned at Not on file Legal Sex Male 10:33 AM EDT Gender Identity Not on file Sexual Orientation Not on file documented as of this encounter Plan of Treatment Not on file documented as of this encounter Procedures Procedure Name Priority Date/Time Associated Diagnosis Comments MR OUTSIDE IMAGES 07/29/2023 4:55 PM EDT documented in this encounter Results * MR transfer of outside films (07/29/2023 4:55 PM EDT) Anatomical Region Laterality Modality Magnetic Resonan ce 07/29/2023 4:55 PM EDT us External Provider IMG MRI PROCEDURES Final Resul t documented in this encounter Visit Diagnoses Not on filedocumented in this encounter Care Teams Territory Representative Relationship Specialty Start Date End Date Steffen Mathis DO [address] [place], [place] [id number] PCP - General 10/12/23 documented as of this encounter
== END 2024-12-29 23:59 ==
LOC: LAB.DROPOF 01-02 11:14
PROVIDERS: PCP Family Medicine; Visit Provider Family Medicine
DX: E11.9 Type 2 diabetes mellitus without complications (principal); I10 Essential (primary) hypertension
CPT/HCPCS: 80053; 80061; 83036

== ENCOUNTER 2025-01-14 00:03 | Emergency (ER) | payer OTHER, SELFPAY ==
--- NOTE | 2025-01-14 00:09 | CT_ITS ---
PROCEDURE INFORMATION: Exam: CT Lumbar Spine Without Contrast Exam date and time: 01/14/2025 12:25 AM Age: 64 years old Clinical indication: Pain; Other: Low thoracic/high lumbar; Additional info: Low thoracic/high lumbar ttp TECHNIQUE: Imaging protocol: Computed tomography of the lumbar spine without contrast. Radiation optimization: All CT scans at this facility use at least one of these dose optimization techniques: automated exposure control; mA and/or kV adjustment per patient size (includes targeted exams where dose is matched to clinical indication); or iterative reconstruction. COMPARISON: CT LUMBAR SPINE WO CON 06/28/2023 9:52 AM FINDINGS: Bones/joints: Degenerative changes. Old deformity right transverse process of L3 vertebral body. Visualized vertebral body heights are preserved. Straightening of lumbar lordosis, possibly positional or muscle spasm. Vasculature: Vascular calcifications. Soft tissues: See Bones/joints finding. IMPRESSION: Visualized vertebral body heights are preserved. If symptoms persist or spinal cord compression or nerve root compression is a concern clinically, correlation with MRI is necessary.
--- NOTE | 2025-01-14 00:09 | CT_ITS ---
PROCEDURE INFORMATION: Exam: CT Thoracic Spine Without Contrast Exam date and time: 01/14/2025 12:19 AM Age: 64 years old Clinical indication: Pain; Other: Low thoracic/high lumbar; Additional info: Low thoracic/high lumbar ttp TECHNIQUE: Imaging protocol: Computed tomography of the thoracic spine without contrast. Radiation optimization: All CT scans at this facility use at least one of these dose optimization techniques: automated exposure control; mA and/or kV adjustment per patient size (includes targeted exams where dose is matched to clinical indication); or iterative reconstruction. COMPARISON: CT THORACIC SPINE WO CON 05/07/2023 11:47 AM FINDINGS: Bones/joints: Metallic plate cervical spine extending to T1. Visualized vertebral body heights are preserved. Soft tissues: Unremarkable. Lungs: Probable atelectatic changes. Pulmonary emphysema Coronary arteries: Coronary artery calcifications. IMPRESSION: Visualized vertebral body heights are preserved. If symptoms persist or spinal cord compression or nerve root compression is a concern clinically, correlation with MRI is necessary.
[2025-01-14 00:10] VITALS: BP 119/73; PULSE 99; RESP 22; TEMP 36.8; O2SAT 98; BMI 25.5
--- OUTSIDE RECORDS SUMMARY | 2025-01-14 00:19 | XMS_ITS | Clinical Summary ---
Author Organization Healthcare Address [address] [place] [address] Care Team Providers Care Disability Attorney Name Role Phone Steffen Mathis Primary Care Provider [phone] Allergies No known active allergies Medications DULoxetine (Cymbalta) [address] capsule Take 1 capsule (60 mg) by mouth 1 (one) time each day. 10/13/2022 Active gabapentin (Neurontin) 300 MG capsule 1 capsule (300 mg). 11/10/2022 Active HYDROcodone-angie taminophen ([place]) 10-325 MG tablet 1 tablet (10 mg [...] Telephone [place] [facility] [address] [place] [address] Gabriele Quiñones MD HCN - Patient Message (Return call) from Last 3 Months Social History Tobacco Use Types Packs/Day Years Used Date Smoking Tobacco: Every Day Cigarettes 1.5 49.7 Started: 1975 Passive Smoke Exposure: Never Smokeless [...] 2011 [facility]-Zoster Vaccines (1 of 2) 2011 [id number] Vaccine (1 - 2023- season) 2024 [facility]-Depression [...] age to complete this topic Care Teams Disability Attorney Relationship Specialty Start Date End Date Steffen Mathis DO [address] [place] [address] PCP - General 10/12/23
--- OUTSIDE RECORDS SUMMARY | 2025-01-14 00:19 | XMS_ITS | Encounter Summary ---
Author Organization Healthcare Address [address] [place] [address] Care Team Providers Care Research Coordinator Name Role Phone Steffen Mathis DO Primary Care Provider [phone] Encounter Details Date Type Department Care Team (Late st Contact Info) Description 07/29/2023 Orders Only External Location [address] [place] [address] Provider, External Social History Tobacco Use Types [...] on filedocumented in this encounter Care Teams Research Coordinator Relationship Specialty Start Date End Date Steffen Mathis DO [address] [place], [place] [id number] PCP - General 10/12/23 documented as of this encounter
[2025-01-14] MEDS: GABAPENTIN 300MG CAPSULE 300 MG PO (00:23)
[2025-01-14] MEDS: ACETAMINOPHEN 500MG TAB 500 MG PO (00:23)
[2025-01-14] MEDS: LIDOCAINE 5% TRANSDERMAL PATCH 1 EACH TD (00:23)
[2025-01-14] MEDS: KETOROLAC 30MG/ML VIAL 30 MG IM (00:24)
[2025-01-14] MEDS: HYDROCODONE 10MG/APAP 325MG TAB 1 TAB PO (00:24)
[2025-01-14 00:30] VITALS: BP 118/68; PULSE 91; RESP 12; O2SAT 93
[2025-01-14] MEDS: METHOCARBAMOL 500MG TABLET 500 MG PO (00:34)
--- NOTE | 2025-01-14 00:47 | ED_ITS ---
Discharge Plan Disposition Patient Disposition: Home, Self-Care Condition: Good Prescriptions Prescriptions: New methocarbamol 500 mg tablet 500 mg PO Q8H PRN (Reason: muscle spasm) Qty: 20 0RF lidocaine 5 % adhesive patch,medicated See Rx Instructions .ROUTE .COMPLEX Qty: 15 0RF Rx Instructions: Apply to most painful area and leave on for 12 hours. Remove and leave off for 12 hours before using a new patch. No Action quetiapine 100 mg tablet 100 mg PO HS Qty: 90 4RF duloxetine 60 mg capsule,delayed release(DR/EC) 60 mg PO DAILY Qty: 90 4RF metformin 1,000 mg tablet 1,000 mg PO BID 90 Days Qty: 180 3RF lisinopril 20 mg tablet See Rx Instructions .ROUTE .COMPLEX Qty: 90 0RF Dose Instruction: Take 1 tablet by mouth once daily Rx Instructions: Take 1 tablet by mouth once daily gabapentin 300 mg capsule See Rx Instructions .ROUTE .COMPLEX Qty: 180 0RF Dose Instruction: TAKE 2 CAPSULES BY MOUTH THREE TIMES A DAY MAY CAUSE DROWSINESS Rx Instructions: TAKE 2 CAPSULES BY MOUTH THREE TIMES A DAY MAY CAUSE DROWSINESS hydrocodone-acetaminophen 10-325 mg tablet 1 tab PO Q4H Qty: 180 0RF Referrals Follow up/Referrals: Eb Draper MD [Nurse Practitioner, Pain Management] - See instructions Referral Note: chronic back pain Provider,Referral, [Primary Care Provider, Medical] - See instructions Activity Restrictions/Add. Instructions Additional Instructions/Restrictions: You were evaluated in the ER and are believed to be appropriate for discharge at this time. Continue taking your home medications as previously prescribed. I have also prescribed methocarbamol which is a mild muscle relaxer and lidocaine patches. Do not drive or operate machinery after taking the muscle relaxer as it can make you sleepy. Use the lidocaine patches as directed. Remove the lidocaine patch that you currently have on at noon today. Make an appointment with your primary care doctor for reevaluation in 2 to 3 days. Also follow-up with Dr. Draper [facility] with pain management. Return to the ER with any new, worsening, or otherwise concerning symptoms. Clinical Impressions Clinical Impression: Acute on chronic back pain Print Language Print Language: Luxembourgish Discharge ED Provider: Jayjay Johnson Adult [facility] General Chief complaint: PAIN Stated complaint: back pain Time Seen by Provider: 01/14/25 00:09 Mode of Arrival: Wheelchair Source of Information: Patient Description of Symptoms (Recalled from ER Triage Doc. by RN): patient to ED in wheelchair with complaints of lower back pain. Patient states that he was attempting to stand when he felt significant pain in legs and lower back. Patient unable to walk at this time, has severe pain upon movement. Denies recent injury, or loss of bowel and bladder. History of Present Illness HPI narrative: 64-year-old male presents to the ER with complaints of exacerbation of chronic lower back pain. Patient reports he attempted to get up off the couch when he felt significant pain in his lower back radiating to the both legs. Patient did not fall and has no weakness in the legs but states his pain is worse than normal. He states it is the same type of pain he typically has but more intense than normal. He states his last dose of hydrocodone was 4 hours prior to arrival as was his last dose of gabapentin. He states he is supposed to take each of these every 4 hours. He has no numbness, tingling, or weakness, no saddle anesthesia, denies bowel or bladder incontinence. Has had no falls or other injuries. No fevers or chills, no chest pain or difficulty breathing, no neurologic deficits, no abdominal complaints. Patient is grouchy stating he just wants his pain controlled and states he has no interest in following up with pain management but family at bedside states they would like the referral to pain management and will follow-up. Related Data Previous Rx's ?Medication ?Instructions ?Recorded duloxetine 60 mg capsule,delayed 60 mg PO DAILY #90 ca ps 10/21/24 release quetiapine 100 mg tablet 100 mg PO HS #90 tabs metformin 1,000 mg tablet 1,000 mg PO BID 90 days #180 tabs 12/05/24 lisinopril 20 mg tablet See Rx Instructions .Route 0 12/09/24 .COMPLEX #90 tabs gabapentin 300 mg capsule See Rx Instructions .Route 0 12/16/24 .COMPLEX #180 caps hydrocodone 10 mg-acetaminophen 1 tab PO Q4H #180 tabs 12/23/24 325 mg tablet lidocaine 5 % topical patch See Rx Instructions topica l 01/14/25 .COMPLEX #15 ea methocarbamol 500 mg tablet 500 mg PO Q8H PRN muscle s pasm #20 01/14/25 tabs Allergies Allergy/AdvReac Type Severity Reaction Status Date / Time No Known Allergies Allergy Verified 12/29/24 10:20 [facility] Disclaimer: The information contained in this section may have been updated after the patient was seen, as this information can be updated by other users. Medical History (Updated 01/14/25 @ 01:36 by Jayjay Johnson MD) Screening for lung cancer Cigarette smoker Tendon injury Hypertension Diabetes Surgical History S/P tendon repair S/P cervical spinal fusion Social History Smoking Status: Current every day smoker tobacco type: e-cigarettes alcohol intake: never substance use type: denies use current occupational status: retired Travel in the last 8 weeks?: None Other Medical History Have you received the Pneumonia Vaccine: No ROS Obtained: Yes Systems reviewed as appropriate & no additional complaints except as documented Per HPI Physical Exam General General appearance: alert and in no apparent distress Head Head exam: atraumatic and normocephalic Eye Eye exam: Present PERRL and EOMI ENT ENT exam: Present mucous membranes moist Neck Neck exam: Present normal inspection and full ROM Chest Chest inspection: Present symmetric chest wall rise Respiratory Respiratory exam: Present normal lung sounds bilaterally; Absent respiratory distress, wheezes or stridor Cardiovascular Cardiovascular exam: Present regular rate and normal rhythm Abdominal Exam Abdominal exam: Present soft; Absent distention or tenderness Rectal Exam Rectal exam: Present normal inspection and normal rectal tone Extremities Exam Extremities exam: Present full ROM and normal capillary refill; Absent edema Back Exam Back exam: Present vertebral tenderness (Midline tenderness at the thoracolumbar junction with no deformity or step-off, no evidence of trauma) Neurological Exam Neurological exam: Present alert, oriented X3 and CN II-XII intact; Absent motor sensory deficit (No saddle anesthesia) Psychiatric Psychiatric exam: Present normal affect and normal mood Skin Skin exam: Present warm and dry Medical Decision Making Medical Records Medical records reviewed: Yes I reviewed the patient's medical records. Screening: Per USPSTF and CDC recommendations, given the prevalence of disease in our region, it is our hospital?s policy to screen for HIV and viral Hepatitis for all patients aged 18 and over and those with ongoing risk factors. Boy Inquiry Pt receiving controlled substance: No Vital Signs: 01/14/25 00:10 01/14/25 00:30 01/14/25 02:07 Temperature 98.2 F 98.0 F Temperature Source Oral Oral Pulse Rate 91 H 89 Pulse Rate [Left] 99 H Respiratory Rate 22 12 15 Blood Pressure 118/68 113/77 Blood Pressure [Right Arm] 119/73 Blood Pressure Mean [Right Arm] 88 Blood Pressure Source Automatic Cuff Blood Pressure Source [Right Arm] Automatic Cuff Blood Pressure Position Sitting Blood Pressure Position [Right Arm] Supine 02 Sat by Pulse Oximetry 98 93 L Oxygen Delivery Method Room Air Room Air Orders (Tests/Meds): ED MEDICATIONS Discontinued Medications Generic Name Dose Route Start Last Admin Trade Name Freq PRN Reason Stop Dose Admin Acetaminophen 500 mg 01/14/25 00:09 01/14/25 00:23 Acetaminophen 500mg Tab PO 01/14/25 00:10 500 mg ONCE ONE Administration Hydrocodone Bitart/Acetaminophen 1 tab 01/14/25 00:09 01/14/25 00:24 Hydrocodone 10mg/Apap 325mg Tab PO 01/14/25 00:10 1 tab ONCE ONE Administration Gabapentin 300 mg 01/14/25 00:09 01/14/25 00:23 Gabapentin 300mg Capsule PO 01/14/25 00:10 300 mg ONCE ONE Administration Ketorolac Tromethamine 30 mg 01/14/25 00:09 01/14/25 00:24 Ketorolac 30mg/Ml Vial IM 01/14/25 00:10 30 mg ONCE ONE Administration Lidocaine 1 each 01/14/25 00:09 01/14/25 00:23 Lidocaine 5% Transdermal Patch TD 01/14/25 00:10 1 each ONCE ONE Administration Methocarbamol 500 mg 01/14/25 00:11 01/14/25 00:34 Methocarbamol 500mg Tablet PO 01/14/25 00:12 500 mg ONCE ONE Administration ORDERS Category Date Time Status CT lumbar spine wo con Stat Cat Scan 01/14/25 00:[address] thoracic spine wo con Stat Cat Scan 01/14/25 00:09 Completed Medical Decision Narrative: In summary, this 64-year-old male with comorbidities described in the HPI p resents to the emergency department today with acute exacerbation of chronic back pain. On initial evaluation patient is hemodynamically stable, afebrile, GCS 15, no neurologic deficits, full strength throughout, no saddle anesthesia, rectal tone intact, patient does have tenderness to palpation at the thoracolumbar junction without deformity or step-off, no evidence of trauma, remainder of exam benign. Differential diagnosis includes but is not limited to degenerative changes, discopathy, radiculopathy, I considered the possibility of acute osseous injury but I have very low suspicion for this without acute traumatic event, I also considered muscle spasm, and considered cauda equina however physical exam findings are very reassuring against this and patient has no red flag symptoms or exam findings of cauda equina. Based on these concerns, I ordered CT thoracic and lumbar spine, multimodal pain control. Patient received home dose gabapentin and hydrocodone, as well as lidocaine patch, methocarbamol, Toradol, Tylenol. CTs of the spine were personally interpreted and I appreciate degenerative changes but no acute osseous injury or other abnormality, see radiology read for final interpretation. On reassessment patient has ambulated to the bathroom with standby assist and is feeling improved. I believe he is appropriate for discharge at this time. I prescribed lidocaine patches and methocarbamol for outpatient management. I also gave the patient referral to Dr. Draper with pain management and family insist they will follow-up with him despite the patient not being interested. Patient was given instructions on symptomatic management, follow up instructions, and return precautions for the emergency department. Patient indicated understanding and was discharged in stable condition. Critical Care Critical Care Time Critical Care Time: No
[2025-01-14 02:07] VITALS: BP 113/77; PULSE 89; RESP 15; TEMP 36.7; O2SAT 96
== END 2025-01-14 02:08 | disposition home or self-care (01) ==
PROVIDERS: Emergency Provider Emergency Medicine
DX: M54.9 Dorsalgia, unspecified (principal); E11.9 Type 2 diabetes mellitus without complications; I10 Essential (primary) hypertension
CPT/HCPCS: 72128; 72131; 96372; 99283; 99285; J1885

== ENCOUNTER 2025-03-31 11:32 | Outpatient (CLI) | payer OTHER, SELFPAY ==
--- OUTSIDE RECORDS SUMMARY | 2025-01-30 12:44 | XMS_ITS | Encounter Summary ---
Author Organization Healthcare Address [address] [facility] [place] [address] Care Team Providers Care Terrazzo Polisher Helper Name Role Phone DelSteffen Primary Care Provider [phone] Encounter Details Date Type Department Care Team (Latest Contact Info) Description 01/30/2025 1:44 PM EDT - 01/30/2025 11:59 PM EDT Hospital En[facility] [address], [address] [place] [address] Degeneration of intervertebral disc of lumbar region with discogenic back pain Discharge Disposition: Home or Self Care Social History Tobacco Use Types Packs/Day Years Used Date Smoking Tobacco: Every Day Cigarettes 1.5 49.9 Started: 1975 Passive Smoke Exposure: Never Smokeless [...] on file documented as of this encounter Medications at Time of Discharge DULoxetine (Cymbalta) [address] capsule Take 1 capsule (60 mg) by mouth 1 (one) time each day. 10/13/2022 gabapentin (Neurontin) 300 MG capsule 1 capsule (300 mg). 11/10/2022 HYDROcodone-aceta minophen ([place]) 10-325 MG tablet 1 tablet (10 mg of hydrocodone). 12/09/2022 lisinopril 20 MG tablet Take 1 tablet (20 mg) by mouth 1 (one) time each day. 09/08/2023 metFORMIN (Glucophage) 500 MG tablet Take 2 tablets (1,000 mg) by mouth 2 (two) times a day. 09/19/2023 QUEtiapine (SEROquel) 100 MG tablet Take 1 tablet (100 mg) by mouth every night. 10/13/2022 documented as of this encounter Plan of Treatment Upcoming Encounters Date Type Department Care Team (Latest Contact Info) Description 04/12/2025 12:00 PM EST Consult [facility] [address] [place] [address] Gabriele Quiñones MD [address] [address] 04/12/2025 2:45 PM EST Pre-Admission Testing [facility] [address] [place] [address] 04/12/2025 3:50 PM EST Clinical Support [facility] [address] [place] [address] 04/21/2025 10:15 AM EST Hospital Encounter [facility] [address] [place] [address] Gabriele Quiñones MD [address] [address] 04/21/2025 10:15 AM EST - 04/21/2025 2:30 PM EST Surgery [facility] [address] [place] [address] Gabriele Quiñones MD [address] [address] Possible L4-S1 TLIF Scheduled Procedures Name Priority Associated Diagnoses Date/Ti me FUSION, SPINE, LUMBAR, TLIF Degeneration of intervertebral disc of lumbar region with discogenic back pain and lower extremity pain 04/21/2025 10:15 AM EST ADD ON SPINE NAVIGATION Degeneration of intervertebral disc of lumbar region with discogenic back pain and lower extremity pain 04/21/2025 10:15 AM EST documented as of this encounter Procedures Procedure Name Priority Date/Time Associated Diagnosis Comments XR LUMBAR SPINE 4 VIEWS TO INCLUDE FLEXION EXTENSION Routine 01/30/2025 1:53 PM EDT Degeneration of intervertebral disc of lumbar region with discogenic back pain documented in this encounter Results * XR Lumbar Spine 4+ Views w Flexion Extension (01/30/2025 1:53 PM EDT) Anatomical Region Laterality Modality Spine, L-spine Digital Radiogra phy Impressions 01/30/2025 2:36 PM EDT Redemonstration of advanced degenerative change of the lumbar spine most notable at L4-L5 and L5-S1, this appears mildly progressed compared to prior. Dextrocurvature of L4 similar to prior. CRITICAL RESULT: No. COMMUNICATION: Per this written report. By electronically signing this report, I, the attending physician, attest that I have personally reviewed the images/data for the above examination(s) and agree with the final edited report. Drafted by Shruthi Asif MD on 01/30/2025 1:56 PM Final report signed by Kevin King on 01/30/2025 2:36 PM Narrative 01/30/2025 2:36 PM EDT CLINICAL INDICATION: back pain TECHNIQUE: XR LUMBAR SPINE 4 VIEWS TO INCLUDE FLEXION EXTENSION COMPARISON: October 12, 2023 FINDINGS: Redemonstration of dextrocurvature centered at L4. Disc space narrowing and osteophytosis throughout the mid and lower lumbar spine greatest at L4-L5, similar to prior. Retrolisthesis of L4-L5 and L5 on S1. Facet hypertrophy most notable in the lower lumbar spine. Alignment is grossly unchanged in flexion and extension. No significant vertebral body height loss. Procedure Note Kevin King MD - 01/30/2025 CLINICAL INDICATION: back pain TECHNIQUE: XR LUMBAR SPINE 4 VIEWS TO INCLUDE FLEXION EXTENSION COMPARISON: October 12, 2023 FINDINGS: Redemonstration of dextrocurvature centered at L4. Disc space narrowingand osteophytosis throughout the mid and lower lumbar spine greatest atL4-L5, similar to prior. Retrolisthesis of L4-L5 and L5 on S1. Facethypertrophy most notable in the lower lumbar spine. Alignment is grosslyunchanged in flexion and extension. No significant vertebral body heightloss. IMPRESSION: Redemonstration of advanced degenerative change of the lumbar spine mostnotable at L4-L5 and L5-S1, this appears mildly progressed compared toprior. Dextrocurvature of L4 similar to prior. CRITICAL RESULT: No. COMMUNICATION: Per this written report. By electronically signing this report, I, the attending physician, jason I have personally reviewed the images/data for the aboveexamination(s) and agree with the final edited report. Drafted by Shruthi Asif MD on 01/30/2025 1:56 PM Final report signed by Kevin King on 01/30/2025 2:36 PM Xin Silveira SPLICING TECHNICIAN IMG XR PROCEDURES Final Resu lt documented in this encounter Visit Diagnoses Diagnosis Degeneration of intervertebral disc of lumbar region with discogenic back pain Degeneration of intervertebral disc of lumbar region with discogenic back pain and lower extremity pain documented in this encounter Additional Health Concerns Assessment Noted Time A fall risk assessment has been complete d for the patient 01/30/2025 2:10 PM EDT A Body Mass Index follow-up plan has been documented for the patient 02/09/2025 11:00 PM EDT documented as of this encounter Care Teams Terrazzo Polisher Helper Relationship Specialty Start Date End Date Steffen Mathis DO [address] [place] [id number] PCP - General 10/12/23 documented as of this encounter
--- OUTSIDE RECORDS SUMMARY | 2025-01-30 13:00 | XMS_ITS | Encounter Summary ---
Author Organization Healthcare Address [address] [place] [address] Care Team Providers Care Guest Services Coordinator Name Role Phone Steffen Mathis DO Primary Care Provider [phone] Reason for Referral * Consultation (Routine) - Authorized Specialty Diagnoses / Procedures Referred By Verna t Referred To Contact Physical Therapy Diagnoses Degeneration of intervertebral disc of lumbar region with discogenic back pain Xin Silveira APRN [address] [address] Phone: tel: fax: Referral ID Status Reason Start Date Expiration Date Visits Requested Visits Authorized [id number] Authorized Specialty Services Required 01/30/2025 08/01/2026 1 1 Encounter Details Date Type Department Care Team (Latest Contact Info) Description 01/30/2025 2:00 PM EDT Office Visit [facility] [address], [address] [place] [address] Gabriele Quiñones MD [id number] [place] [address] Degeneration of intervertebral disc of lumbar region with discogenic back pain (Primary Dx) Social History Tobacco Use Types Packs/Day Years [...] on file documented as of this encounter Last Filed Vital Signs Vital Sign Reading Time Taken Comments Blood Pressure 121/74 01/30/2025 2:07 PM EDT Pulse 94 01/30/2025 2:07 PM EDT Temperature 35.9 C (96.7 F) 01/30/2025 2:07 PM EDT Respiratory Rate - - Oxygen Saturation - - Inhaled Oxygen Concentration - - Weight 82.6 kg (182 lb) 01/30/2025 2:07 PM EDT Height 175.3 cm (5' 9 ) 01/30/2025 2:07 PM EDT Body Mass Index 26.88 01/30/2025 2:07 PM EDT documented in this encounter Miscellaneous Notes * Progress Notes - Gabriele Quiñones MD - 01/30/2025 2:00 PM EDT We had the pleasure of seeing your patient in our clinic today for continued Neurosurgical evaluation. Chief Complaint: Lumbar radiculopathy History Of Present Illness Piotr Carty is a 63 y.o. male with heavy smoking history presenting with chronic lower back pain and bilateral lower extremity radiculopathy, left worse than right. He describes severe back pain (7/10 today) that radiates down his left leg in a nondermatomal distribution. This pain started [id number], but has gradually worsened since. Endorses subjective BLE weakness, with multiple falls, at least 3 times a week per caregiver. Feels like his legs are giving out on him. He is more bothered bythe back pain and leg pain. The denies tingling or numbness. Denies bowel or bladder issues. He wasseen in clinic previously in October this year and was recommended to trial physical therapy. He reports that PT has not improved his symptoms. He had also tried injections in the past with minimal benefit. Patient has a significant smoking history with 2 packs a day since he was 16 years old. Also, he has a history of 2 prior cervical spine fusions, diabetes, and hypertension. Past Medical History: Diagnosis Date Hypertension Type 2 diabetes mellitus (CMS/HCC) Past Surgical History: Procedure Laterality Date CERVICAL SPINE SURGERY 2 HAND SURGERY Family History Adopted: Yes Social History Tobacco Use Smoking status: Every Day Current packs/day: 1.50 Average packs/day: 1.5 packs/day for 48.5 years (72.8 ttl pk-yrs) Types: Cigarettes Start date: 1975 Passive exposure: Never Smokeless tobacco: Never Vaping Use Vaping status: Never Used Substance Use Topics Alcohol use: Never Drug use: Never Current Outpatient Medications Medication Instructions DULoxetine (CYMBALTA) 60 mg, Oral, Daily gabapentin (NEURONTIN) 300 mg HYDROcodone-acetaminophen ([place]) 10-325 MG tablet 1 tablet lisinopril 20 mg, Oral, Daily metFORMIN (GLUCOPHAGE) 1,000 mg, Oral, 2 times daily QUEtiapine (SEROQUEL) 100 mg, Oral, Nightly Allergies Patient has no known allergies. Visit Vitals BP 116/64 Ht 1.753 m (5' 9 ) Wt 83 kg (183 lb) BMI 27.02 kg/m?? Smoking Status Every Day BSA 2.01 m?? Neuro Exam GCS (EMV): 465 Awake, alert, oriented Follows commands appropriately Speech clear PERRL, EOMI HARDY symmetrically, no drift BLE 4+/5 diffusely SLT intact Imaging No new images obtained today. There are degenerative changes in the lumbar spine. There are multilevel disc protrusions causing varying degrees of neuroforaminal as well as central canal stenosis, greatest at L3-4, L4-5. Problem List Items Addressed This Visit None Visit Diagnoses Chronic midline low back pain with bilateral sciatica - Primary DDD (degenerative disc disease), lumbar Foraminal stenosis of lumbar region Central stenosis of spinal canal Assessment and Plan Piotr Carty is a 63 y.o. male with lumbar radiculopathy, since 2019. Back pain > Leg pain.Left leg> Right leg, now refractory to conservative management, with multiple recent falls. We reviewed the natural history of stenosis associated back and leg pain in detail today. The rationale and potential associated risks of further nonoperative measures versus surgical intervention were also discussed. Notably, he has a 75+ pack year smoking history and is still smoking 2 packs a day. Hewas counseled on the importance of smoking cessation and its contribution to his back pain, overallhealth, improving surgical outcomes, and decreasing the risk of post-operative complications. He will call clinic with quit smoking date and we will re-address surgical candidacy then. An updated PT referral was also provided today. Follow-up information was provided and the patient knows to call the clinic with any questions or concerns. documented in this encounter Plan of Treatment Upcoming Encounters Date Type Department Care Team (Latest Contact Info) Description 04/12/2025 12:00 PM EST Consult [facility] [address], [address]st [place] [address] Gabriele Quiñones MD [facility] [address] [address] 04/12/2025 2:45 PM EST Pre-Admission Testing [facility] [address] [place] [address] 04/12/2025 3:50 PM EST Clinical Support [facility] [address] [place] [address] 04/21/2025 10:15 AM EST Hospital Encounter [facility] [address] [place] [address] Gabriele Quiñones MD [address] [address] 04/21/2025 10:15 AM EST - 04/21/2025 2:30 PM EST Surgery [facility] [address] [place] [address] Gabriele Quiñones MD [address] [address] Possible L4-S1 TLIF Scheduled Procedures Name Priority Associated Diagnoses Date/Ti me FUSION, SPINE, LUMBAR, TLIF Degeneration of intervertebral disc of lumbar region with discogenic back pain and lower extremity pain 04/21/2025 10:15 AM EST ADD ON SPINE NAVIGATION Degeneration of intervertebral disc of lumbar region with discogenic back pain and lower extremity pain 04/21/2025 10:15 AM EST Scheduled Referrals Name Type Priority Associated Diagnoses Orde r Schedule Ambulatory referral to Physical Therapy Outpatient Referral Routine Degeneration of intervertebral disc of lumbar region with discogenic back pain Expected: 01/30/2025 (Approximate), Expires: 08/03/2026 documented as of this encounter Results * XR Lumbar Spine [...] King on 01/30/2025 2:36 PM Xin Silveira MANUFACTURING TEST TECHNICIAN IMG XR PROCEDURES Final Resu lt documented in this encounter Visit Diagnoses Diagnosis Degeneration of intervertebral disc of lumbar region with discogenic back pain- Primary Degeneration of intervertebral disc of lumbar region [...] documented as of this encounter Care Teams Guest Services Coordinator Relationship Specialty Start Date End Date Steffen Mathis DO [address] [place] [address] PCP - General 10/12/23 documented as of this encounter
--- OUTSIDE RECORDS SUMMARY | 2025-03-31 11:35 | XMS_ITS | Clinical Summary ---
Author Organization Healthcare Address [address] [place] [address] Care Team Providers Care Hat Mender Name Role Phone Steffen Mathis Primary Care Provider [phone] Allergies No known active allergies Medications DULoxetine (Cymbalta) [address] capsule Take 1 capsule (60 mg) by mouth 1 (one) time each day. 10/13/2022 Active gabapentin (Neurontin) 300 MG capsule 1 capsule (300 mg). 11/10/2022 Active HYDROcodone-angie taminophen ([place]) 10-325 MG tablet 1 tablet (10 mg [...] Encounters Date Type Department Care Team Description 03/22/2025 Orders Only [facility] [address], [address] [place] [address] Xin Silveira APRN Nicotine dependence with nicotine-induced disorder, unspecified nicotine product type (Primary Dx) 03/14/2025 Telephone [facility] [address], [address] [place] [address] Gabriele Quiñones MD 01/30/2025 2:00 PM EDT Office Visit [facility] General Surgery [address], [address] [place] [phone] Gabriele Quiñones MD Degeneration of intervertebral disc of lumbar region with discogenic back pain (Primary Dx) 01/30/2025 1:44 PM EDT - 01/30/2025 11:59 PM EDT Hospital Encounter [facility] Radiology [address], [address] [place] [address] Degeneration of intervertebral disc of lumbar region with discogenic back pain Discharge Disposition: Home or Self Care 01/30/2025 Travel 01/18/2025 Telephone [facility] [address], [address]st [place] [phone] Gabriele Quiñones MD from Last 3 Months Social History Tobacco Use Types Packs/Day Years Used Date Smoking Tobacco: Former Cigarettes 1.5 49.8 1 976 - 03/16/2025 Passive Smoke Exposure: Never Smokeless Tobacco: Never Tobacco Cessation:Counseling Given: Not Answered Alcohol Use Standard Drinks/Week Comments Never 0 [...] F) 01/30/2025 2:07 PM EDT Respiratory Rate 16 10/12/2023 12:12 PM EDT Oxygen Saturation - - Inhaled Oxygen Concentration - - Weight 82.6 kg (182 lb) 01/30/2025 2:07 PM EDT Height 175.3 cm (5' 9 ) 01/30/2025 2:07 PM EDT Body Mass Index 26.88 01/30/2025 2:07 PM EDT Plan of Treatment Upcoming Encounters Date Type Department Care Team (Latest Contact Info) Description 04/12/2025 12:00 PM EST Consult [facility] [address], [address] [place] [phone] Gabriele Quiñones MD [address] [place] [phone] 04/12/2025 2:45 PM EST Pre-Admission Testing [facility] [address], [address]st [place] [address] 04/12/2025 3:50 PM EST Clinical Support [facility] Lab [address], [address] [place] [address] 04/21/2025 10:15 AM EST Hospital Encounter [facility] [address] [place] [address] Gabriele Quiñones MD [address] [place] [address] 04/21/2025 10:15 AM EST - 04/21/2025 2:30 PM EST Surgery [facility] [address] [place] [address] Gabriele Quiñones MD [address] [place] [address] Possible L4-S1 TLIF Scheduled Procedures Name Priority Associated Diagnoses Date/Ti me FUSION, SPINE, LUMBAR, TLIF Degeneration of intervertebral disc of lumbar region with discogenic back pain and lower extremity pain 04/21/2025 10:15 AM EST ADD ON SPINE NAVIGATION Degeneration of intervertebral disc of lumbar region with discogenic back pain and lower extremity pain 04/21/2025 10:15 AM EST Health Maintenance Due Date Last Done Comments [facility]-HIV Screening 1961 [facility]-Hepatitis C Screening 1961 [facility]-/Child/Adol SDOH Screenings 1961 [facility]- SDOH Screenings 1979 [facility]-Adult SDOH Screenings 1979 [facility]-DTaP,Tdap,and Td Vaccine s (1 - Tdap) 1980 CT Colonography 2006 Colonoscopy 2006 FIT-DNA 2006 FIT 2006 FOBT 2006 Sigmoidoscopy 2006 [facility]-Colorectal Cancer Screening 2006 Lung Cancer Screening Shared Decision Making 2011 [facility]-Lung Cancer Screening 2011 [facility]-Pneumococcal Vaccine: 50 + Years (1 of 1 - PCV) 2011 [facility]-Zoster Vaccines (1 of 2) 2011 [facility]-Depression Screening 10/11/2024 10/12/2023 [id number] Vaccine (1 - 2024- season) 2025 [facility]-Influenza Vaccine (#1) 2025 [facility]-RSV Vaccine: 60+ Years o r (1 - 1-dose 75+ series) 2036 [facility]-Obesity Intervention Completed 025, 11/11/2023, 10/12/2023 HPV Vaccines Aged Out No longer [...] on patient's age to complete this topic Goals Goal Patient Goal Type Associated Problems Recent Progress Patient-Stated? Author Autogenera irena Goal Care Plan Autogenerated Problem No Vasyl Wilson Procedures Procedure Name Priority Date/Time Associated Diagnosis Comments XR LUMBAR SPINE 4 VIEWS TO INCLUDE FLEXION EXTENSION Routine 01/30/2025 1:53 PM EDT Degeneration of intervertebral disc of lumbar region with discogenic back pain from Last 3 Months Results * XR Lumbar Spine 4+ Views [...] signing this report, I, the attending physician, attestthat I have personally reviewed the images/data for the aboveexamination(s) and agree with the final edited report. Drafted by Shruthi Asif MD on 01/30/2025 1:56 PM Final report signed by Kevin King on 01/30/2025 2:36 PM us Xin Silveira INDUSTRIAL SAFETY AND HEALTH SPECIALIST IMG XR PROCEDURES Final Resu lt from Last 3 Months Additional Health Concerns Active Problems Noted Date Diagnosed Date Autogenerated Problem 03/29/2025 Insurance GENERIC COMMERCIAL MD [place] [id number] Care Teams Hat Mender Relationship Specialty Start Date End Date Steffen Mathis DO [address] [place] [address] PCP - General 10/12/23
--- OUTSIDE RECORDS SUMMARY | 2025-03-31 11:35 | XMS_ITS | Encounter Summary ---
Author Organization Healthcare Address [address] [place] [address] Care Team Providers Care Intern Product Marketing Manager Name Role Phone Steffen Mathis Primary Care Provider [phone] Encounter Details Date Type Department Care Team (Late st Contact Info) Description 07/29/2023 Orders Only External Location [address] [place] [address] Provider, External Social History Tobacco Use Types [...] Info) Description 04/12/2025 12:00 PM EST Consult [facility] [address], [address] [place] [address] Gabriele Quiñones MD [address] [place] [address] 04/12/2025 2:45 PM EST Pre-Admission Testing [facility] [address], [address] [place] [address] 04/12/2025 3:50 PM EST Clinical Support [facility] [address] [place] [address] 04/21/2025 10:15 AM EST Hospital Encounter [facility] [address] [place] [address] Gbariele Quiñones MD [address] [place] [address] 04/21/2025 10:15 AM EST - 04/21/2025 2:30 PM EST Surgery [facility] [address] [place] [address] Gabriele Quiñones MD [address] [phone] Possible L4-S1 TLIF Scheduled Procedures Name Priority [...] on filedocumented in this encounter Care Teams Intern Product Marketing Manager Relationship Specialty Start Date End Date Steffen Mathis DO [address] [place] [address] PCP - General 10/12/23 documented as of this encounter
--- OUTSIDE RECORDS SUMMARY | 2025-03-31 11:35 | XMS_ITS | Encounter Summary ---
Author Organization Healthcare Address [address] [place] [address] Care Team Providers Care Software Manager Name Role Phone Steffen Mathis DO Primary Care Provider [phone] Encounter Details Date Type Department Care Team (Late st Contact Info) Description 03/14/2025 Telephone [facility] [address], [address] [place] [address] Gabriele Quiñones MD [address] [place] [address] Social History Tobacco Use Types Packs/Day Years [...] encounter Miscellaneous Notes * Telephone Encounter - Vaysl Wilson - 03/21/2025 4:30 PM EST 03/21/2025 - Spoke to patient and patient's Alternate Contact / Emelina Tidwell (Other) [phone] Patient has established a quit smoking date as of 03/16/2025 as per outlined as a requirement from his office visit from Dr. Ishmael MD 01/30/2025 at General Surgery. Patient is aware he will need to remain nicotine free, and be tested on 03/30/2025 (Next ),and confirmed he will remain nicotine free until at least after recovery period as long as possible. - No surgery date has been issued, as no clear surgery plan has been outlined prior from his past visits with Dr. Quiñones, and the patient and alternate contact are aware a preoperative visit and surgery date are pending his results. - Patient requested the Nicotine UA Test preformed to be at [facility] EXT#0 & ask for Lab // FAX# [phone] - Nicotine Blood testing takes 3-5 days - Urine Testing takes 4-8 days * Telephone Encounter - Pablo Jones - 03/21/2025 11:08 AM EST Patient Phone Message Reason for Call: Patient calling back to leave message for luigi Mcbride nicotine is 03/16 . Avail for call back if needed Best contact number and optimal time of day to reach caller: [phone] Note: Please do not reply to this message. Follow-up communication and further actions as a result of this message need to be communicated with the patient directly, if the patient is not active onMyChart. If the patient is active on MyChart, they will receive notification of the communication/outcome via [employer]. * Telephone Encounter - Vasyl Wilson - 03/14/2025 1:17 PM EST 03/14/2025 - 1:17PM / Spoke to patient's spouse Emelina Tidwell - Patient is currently using a 0.6% nicotine vape, and has plans to decrease nicotine percentage down to 0.0% vape product and will notify our offices to establish a Quit Nicotine Use Date to beginfurther POC/ surgical planning on his behalf. - Once he begins the 0.0% vape, they will contact our offices back to request the Nicotine UA test to be preformed locally at [facility] / [facility] approx 1-2 weeks after the quit datehas been established. * Telephone Encounter - Claudia Marino - 03/14/2025 12:47 PM EST Patient Phone Message Reason for Call: is calling to speak with Reed regarding testing pt is to have when he is through with PT she said that he has 2 weeks left and she is trying to stay ahead of the game. She asks for a call back please advise. Best contact number and optimal time of day to reach caller: [phone] Note: Please do not reply to this message. Follow-up communication and further actions as a result of this message need to be communicated with the patient directly, if the patient is not active onMyChart. If the patient is active on MyChart, they will receive notification of the communication/outcome via [employer]. documented in this encounter Plan of Treatment Upcoming Encounters Date Type Department Care Team (Latest Contact Info) Description 04/12/2025 12:00 PM EST Consult [facility] [address], [address] [place] [address] Gabriele Quiñones MD [address] [place] [address] 04/12/2025 2:45 PM EST Pre-Admission Testing [facility] [address], [address] [place] [address] 04/12/2025 3:50 PM EST Clinical Support [facility] [address], [address] [place] [address] 04/21/2025 10:15 AM EST Hospital Encounter [facility] [address] [place] [address] Gabriele Quiñones MD [address] [phone] 04/21/2025 10:15 AM EST - 04/21/2025 2:30 PM EST Surgery [facility] [address] [place] [address] Gabriele Quiñones MD [address] [address] Possible L4-S1 TLIF Scheduled Procedures Name Priority Associated Diagnoses Date/Ti me FUSION, SPINE, LUMBAR, TLIF Degeneration of intervertebral disc of lumbar region with discogenic back pain and lower extremity pain 04/21/2025 10:15 AM EST ADD ON SPINE NAVIGATION Degeneration of intervertebral disc of lumbar region with discogenic back pain and lower extremity pain 04/21/2025 10:15 AM EST documented as of this encounter Visit Diagnoses Not on filedocumented in this encounter Additional Health Concerns Assessment Noted Time A fall risk assessment has been complete d for the patient 01/30/2025 2:10 PM EDT A Body Mass Index follow-up plan has been documented for the patient 02/09/2025 11:00 PM EDT documented as of this encounter Care Teams Software Manager Relationship Specialty Start Date End Date Steffen Mathis DO [address] [place] [address] PCP - General 10/12/23 documented as of this encounter
--- OUTSIDE RECORDS SUMMARY | 2025-03-31 11:35 | XMS_ITS | Encounter Summary ---
Author Organization Healthcare Address [address] [place] [address] Care Team Providers Care House Parent Name Role Phone Steffen Mathis DO Primary Care Provider [phone] Encounter Details Date Type Department Care Team (Late st Contact Info) Description 03/22/2025 Orders Only [facility] [address], [address] [place] [address] Xin Silveira, OFFAL ROLLER [phone] [place] [address] Nicotine dependence with nicotine-induced disorder, unspecified nicotine product type (Primary Dx) Social History Tobacco Use Types [...] Info) Description 04/12/2025 12:00 PM EST Consult [facility] [address], [address] [place] [address] Gabriele Quiñones MD [address] [place] [address] 04/12/2025 2:45 PM EST Pre-Admission Testing [facility] [address], [address] [place] [address] 04/12/2025 3:50 PM EST Clinical Support [facility] [address], [address] [place] [address] 04/21/2025 10:15 AM EST Hospital Encounter [facility] [address] [place] [address] Gabriele Quiñones MD [address] [place] [address] 04/21/2025 10:15 AM EST - 04/21/2025 2:30 PM EST Surgery [address] [facility] [address] [place] [address] Gabriele Quiñones MD [address] [place] [address] Possible L4-S1 TLIF Scheduled Orders Name Type Priority Associated Diagnoses Orde r Schedule Nicotine and Cotinine, Urine Lab Routine Nicotine dependence with nicotine-induced disorder, unspecified nicotine product type Expected: 03/22/2025 (Approximate), Expires: 09/19/2026 Scheduled Procedures Name Priority Associated Diagnoses Date/Ti me FUSION, SPINE, LUMBAR, TLIF Degeneration of intervertebral disc of lumbar region with discogenic back pain and lower extremity pain 04/21/2025 10:15 AM EST ADD ON SPINE NAVIGATION Degeneration of intervertebral disc of lumbar region with discogenic back pain and lower extremity pain 04/21/2025 10:15 AM EST documented as of this encounter Visit Diagnoses Diagnosis Nicotine dependence with nicotine-induced disorder, unspecified nicotine product type- Primary Degeneration of intervertebral disc of lumbar [...] documented as of this encounter Care Teams House Parent Relationship Specialty Start Date End Date Steffen Mathis DO [address] [place], [place] [id number] PCP - General 10/12/23 documented as of this encounter
--- OUTSIDE RECORDS SUMMARY | 2025-03-31 11:35 | XMS_ITS | Encounter Summary ---
Author Organization Healthcare Address [address] [place] [address] Care Team Providers Care Manager Manufacturing Name Role Phone Steffen Mathsi Primary Care Provider [phone] Encounter Details Date Type Department Care Team (Latest Contact Info) Description 01/30/2025 Travel Social History Tobacco Use Types Packs/Day Years [...] Info) Description 04/12/2025 12:00 PM EST Consult [facility] [address], [address] [place] [address] Gabriele Quiñones MD [address] [place] [address] 04/12/2025 2:45 PM EST Pre-Admission Testing [facility] [address], [address] [place] [address] 04/12/2025 3:50 PM EST Clinical Support [facility] [address] [place] [address] 04/21/2025 10:15 AM EST Hospital Encounter [facility] [address] [place] [id number] Gabriele Quiñones MD [address] [address] 04/21/2025 10:15 AM EST - 04/21/2025 2:30 PM EST Surgery [facility] [address] [place] [address] Gabriele Quiñones MD [address] [id number] Possible [id number] TLIF Scheduled Procedures Name Priority [...] documented as of this encounter Care Teams Manager Manufacturing Relationship Specialty Start Date End Date Steffen Mathis DO [address] [place] [address] PCP - General 10/12/23 documented as of this encounter
== END 2025-03-31 23:59 | disposition home or self-care (01) ==
LOC: LAB 11:33
PROVIDERS: PCP Family Medicine; Visit Provider Clinical Nurse Specialist Family Health
DX: F17.209 Nicotine dependence, unspecified, with unspecified nicotine-induced disorders (principal)
CPT/HCPCS: 80323; G0480